=== PATIENT | male | born 1940 | race Caucasian/White ===

== ENCOUNTER 2017-12-01 10:34 | Emergency (ER) | payer MEDICARE, BC ==
[~2017-12-01] VITALS: Ht 182.9 cm; Wt 113.4 kg
[~2017-12-01 10:34] MED LIST: ALBU3IS INH; ALBU4 PO; ALBU90OI INH; ALBU90OI6 INH; ASPI325 PO; ASPI81CH PO; ATOR40TA PO; BENAML20/5 PO; BENZ100A PO; Benazepril HCl10 MG PO; CALCNI; CLOB.05TO; CLOP75 PO; DOCU100 PO; DULERA 200 MCG/13 GM INH; GUAI600T33 PO; HYDACE5 PO; HYDCHL25 PO; HYDR1TAB94 PO; Hair, Skin & N1 EACH PO; LAVAP17G; LAVAP17G PO; LEVFLO500 PO; LEVO750 PO; MECL12.5 PO; METO50ER; METO50ER PO; MULVITMIND; NAPR500ERA PO; NEBI10 PO; OMEPRAZOLE MAGN20 MG PO; POTCHL10ER PO; PRED1 PO; PRED10 PO; TIOT18 INH; TORS10
[2017-12-01 11:44] LABS: BASOPHILS ABSOLUTE AUTO 0.06 K/mm3 (0.00-0.23); BASOPHILS PERCENT AUTO 1 % (0-2); EOSINOPHILS ABSOLUTE AUTO 0.25 K/mm3 (0.00-0.68); EOSINOPHILS PERCENT AUTO 4 % (0-6); Hematocrit 38.2 % (37.0-53.0); Hemoglobin 12.7 g/dL (13.5-17.5); IMMATURE GRAN ABSOLUTE AUTO 0.01 K/mm3 (0.00-0.10); IMMATURE GRAN PERCENT AUTO 0 % (0-1); LYMPHOCYTES PERCENT AUTO 19 % (21-46); MONOCYTES ABSOLUTE AUTO 0.33 K/mm3 (0.16-1.47); MONOCYTES PERCENT AUTO 6 % (4-13); Mean Corpuscular HGB 28.5 pg (26.0-34.0); Mean Corpuscular HGB Conc 33.2 g/dL (31.5-36.5); Mean Corpuscular Volume 86 fL (80-100); Mean Platelet Volume 9.1 fL (9.1-12.4); NEUTROPHILS ABSOLUTE AUTO 3.93 K/mm3 (1.96-9.15); NEUTROPHILS PERCENT AUTO 69 % (41-73); Platelet Count 199 K/mm3 (150-400); RDW Coefficient Variation 13.5 % (11.7-14.2); RDW Standard Deviation 42.2 fL (35.1-46.3); Red Blood Cell Count 4.45 M/mm3 (4.30-5.90); White Blood Cell Count 5.68 K/mm3 (4.00-11.30)
[2017-12-01 11:53] LABS: Alanine Aminotransfer (ALT/SGP 21 U/L (12-78); Albumin, Blood 3.7 g/dL (3.4-5.0); Albumin/Globulin Ratio 1.1 (0.8-1.8); Alk Phos 113 U/L (50-136); Anion Gap 5 mmol/L (6-16); Aspartate Aminotrans (AST/SGOT 16 U/L (12-37); Bilirubin, Total 1.5 mg/dL (0.1-1.0); Blood Urea Nitrogen 19 mg/dL (8-24); Bun/Creatinine Ratio 15.3 (12.0-20.0); CO2, Blood 29 mmol/L (21-32); Calcium, Blood 8.6 mg/dL (8.5-10.1); Chloride, Blood 105 mmol/L (98-108); Creatinine, Blood 1.24 mg/dL (0.60-1.20); Globulin, Blood 3.4 g/dL (2.2-4.0); Glomerular Filtration Rate 60 (60-); Glucose, Blood 127 mg/dL (70-99); Potassium, Blood 3.9 mmol/L (3.5-5.5); Sodium, Blood 139 mmol/L (136-145); Total Protein, Blood 7.1 g/dL (6.4-8.2); Troponin I <0.015 ng/mL (0.000-0.040)
[2017-12-01 13:02] LABS: Source, Urine Clean Catch
[2017-12-01 13:04] LABS: Appearance, Urine Clear (Clear); Bilirubin, Urine Neg (Neg); Blood, Urine Neg (Neg); Color, Urine Yellow (P-Yellow); Glucose Qualitative, Urine Neg (Neg); Ketones, Urine Neg (Neg); Leukocyte Esterase, Urine 1+ (Neg); Nitrite, Urine Neg (Neg); Protein, Urine Neg (Neg); Specific Gravity, Urine 1.005 (1.003-1.022); Urobilinogen, Urine NORM (Normal)
[2017-12-01 13:23] LABS: Bacteria Rare /hpf; Red Blood Cells, Urine 0-2 /hpf (0-2); Squamous Epithelial Cells Rare /hpf (Few); White Blood Cells, Urine 0-2 /hpf (0-5)
[2017-12-01] MEDS ORDERED: BENZ100A PO (14:27)
[2017-12-01] MEDS ORDERED: Cyclobenzaprine5 MG PO (14:27)
[2017-12-01] MEDS ORDERED: Norco 5-325 Ta1 EACH PO (14:27)
== END 2017-12-01 14:47 | disposition home or self-care (01) ==
LOC: ER 10:34
PROVIDERS: Emergency Medicine
DX: J40 Bronchitis, not specified as acute or chronic (principal); Z88.0 Allergy status to penicillin; Z88.8 Allergy status to other drugs, medicaments and biological substances; Z91.048 Other nonmedicinal substance allergy status; Z79.82 Long term (current) use of aspirin; Z79.899 Other long term (current) drug therapy; I10 Essential (primary) hypertension; Z85.46 Personal history of malignant neoplasm of prostate
CPT/HCPCS: 36415; 71046; 80053; 81001; 83880; 84484; 85025; 87077; 87086; 87186; 93005; 93010; 94640; 96374; 99284; J1200

== ENCOUNTER 2018-02-01 14:12 | Emergency (ER) | payer MEDICARE, BC ==
[~2018-02-01] VITALS: Ht 182.9 cm; Wt 108.9 kg
[~2018-02-01 14:12] MED LIST changes: +Cyclobenzaprine5 MG PO; +Norco 5-325 Ta1 EACH PO
[2018-02-01 14:48] LABS: BASOPHILS ABSOLUTE AUTO 0.06 K/mm3 (0.00-0.23); BASOPHILS PERCENT AUTO 1 % (0-2); EOSINOPHILS ABSOLUTE AUTO 0.01 K/mm3 (0.00-0.68); EOSINOPHILS PERCENT AUTO 0 % (0-6); Hematocrit 24.2 % (37.0-53.0); Hemoglobin 8.2 g/dL (13.5-17.5); IMMATURE GRAN ABSOLUTE AUTO 0.02 K/mm3 (0.00-0.10); IMMATURE GRAN PERCENT AUTO 0 % (0-1); LYMPHOCYTES PERCENT AUTO 9 % (21-46); MONOCYTES PERCENT AUTO 7 % (4-13); Mean Corpuscular HGB Conc 33.9 g/dL (31.5-36.5); Mean Corpuscular Volume 89 fL (80-100); NEUTROPHILS ABSOLUTE AUTO 8.33 K/mm3 (1.96-9.15); NEUTROPHILS PERCENT AUTO 83 % (41-73); Platelet Count 282 K/mm3 (150-400); RDW Coefficient Variation 14.1 % (11.7-14.2); RDW Standard Deviation 43.8 fL (35.1-46.3); Red Blood Cell Count 2.73 M/mm3 (4.30-5.90); White Blood Cell Count 10.02 K/mm3 (4.00-11.30)
[2018-02-01 14:50] LABS: Calcium, Ionized (POC) 1.13 mmol/L (1.10-1.46); Chloride (POC) 101 mmol/L (98-108); Creatinine (POC) 1.7 mg/dL (0.8-1.3); Glucose (ISTAT POC) 128 mg/dL (70-99); Hemoglobin (POC) 7.1 g/dL (13.5-17.5); Potassium (POC) 3.1 mmol/L (3.5-5.5); Sodium (POC) 139 mmol/L (135-148); Total CO2 (POC) 27 mmol/L (21-32)
[2018-02-01] MEDS ORDERED: ANORO ELLIPTA1 EACH INH (14:53)
[2018-02-01] MEDS ORDERED: ALBU2.5V5 NEB (14:53)
[2018-02-01] MEDS ORDERED: BUDE.5 NEB (14:54)
[2018-02-01 15:11] LABS: Albumin, Blood 3.5 g/dL (3.4-5.0); Albumin/Globulin Ratio 1.2 (0.8-1.8); Bilirubin, Total 1.3 mg/dL (0.1-1.0); Bun/Creatinine Ratio 43.1 (12.0-20.0); Calcium, Blood 8.9 mg/dL (8.5-10.1); Creatinine, Blood 1.53 mg/dL (0.60-1.20); Potassium, Blood 3.3 mmol/L (3.5-5.5); Total Protein, Blood 6.5 g/dL (6.4-8.2)
== END 2018-02-01 21:59 | disposition short-term general hospital (02) ==
LOC: ER 14:12
PROVIDERS: Emergency Medicine
DX: K92.2 Gastrointestinal hemorrhage, unspecified (principal); D64.9 Anemia, unspecified; I10 Essential (primary) hypertension; Z87.01 Personal history of pneumonia (recurrent); Z87.891 Personal history of nicotine dependence; Z88.0 Allergy status to penicillin; Z85.46 Personal history of malignant neoplasm of prostate; Z88.8 Allergy status to other drugs, medicaments and biological substances; Z91.048 Other nonmedicinal substance allergy status; Z79.899 Other long term (current) drug therapy; Z79.82 Long term (current) use of aspirin
CPT/HCPCS: 36415; 36430; 74176; 80047; 80053; 83690; 85014; 85025; 86850; 86900; 86901; 86923; 93005; 93010; 96365; 96366; 99285; C9113; J7030; P9016

== ENCOUNTER 2018-12-16 00:04 | Inpatient (IN) | payer MEDICARE, BC ==
[~2018-12-16] VITALS: Ht 177.8 cm; Wt 104.2 kg
[~2018-12-16 00:04] MED LIST changes: +ALBU2.5V5 NEB; +ANORO ELLIPTA1 EACH INH; +BUDE.25 NEB
[2018-12-16 00:19] LABS: PCO2 Arterial 47.6 mmHg (35-45); pH Blood Arterial 7.34 (7.35-7.45)
[2018-12-16 00:22] LABS: PO2 Arterial < 500 mmHg (80-100)
[2018-12-16 00:27] LABS: BASOPHILS ABSOLUTE AUTO 0.07 K/mm3 (0.00-0.23); BASOPHILS PERCENT AUTO 1 % (0-2); EOSINOPHILS ABSOLUTE AUTO 0.86 K/mm3 (0.00-0.68); EOSINOPHILS PERCENT AUTO 12 % (0-6); Hematocrit 42.4 % (37.0-53.0); Hemoglobin 13.8 g/dL (13.5-17.5); IMMATURE GRAN ABSOLUTE AUTO 0.02 K/mm3 (0.00-0.10); IMMATURE GRAN PERCENT AUTO 0 % (0-1); LYMPHOCYTES PERCENT AUTO 21 % (21-46); MONOCYTES PERCENT AUTO 9 % (4-13); Mean Corpuscular HGB 29.7 pg (26.0-34.0); Mean Corpuscular HGB Conc 32.5 g/dL (31.5-36.5); Mean Corpuscular Volume 91 fL (80-100); Mean Platelet Volume 9.4 fL (9.1-12.4); NEUTROPHILS ABSOLUTE AUTO 3.95 K/mm3 (1.96-9.15); NEUTROPHILS PERCENT AUTO 56 % (41-73); Platelet Count 189 K/mm3 (150-400); RDW Coefficient Variation 13.2 % (11.7-14.2); RDW Standard Deviation 44.5 fL (35.1-46.3); Red Blood Cell Count 4.64 M/mm3 (4.30-5.90)
[2018-12-16] MEDS ORDERED: ALBU90OI6 INH (00:30)
[2018-12-16] MEDS ORDERED: PANT40 PO (00:31)
[2018-12-16 00:51] LABS: Influenza A Negative (NEGATIVE); Influenza B Negative (NEGATIVE)
[2018-12-16 01:02] LABS: Alanine Aminotransfer (ALT/SGP 17 U/L (12-78); Albumin, Blood 3.9 g/dL (3.4-5.0); Albumin/Globulin Ratio 1.2 (0.8-1.8); Alk Phos 100 U/L (50-136); Anion Gap 5 mmol/L (6-16); Aspartate Aminotrans (AST/SGOT 16 U/L (12-37); Blood Urea Nitrogen 19 mg/dL (8-24); Bun/Creatinine Ratio 13.6 (12.0-20.0); CO2, Blood 29 mmol/L (21-32); Calcium, Blood 8.7 mg/dL (8.5-10.1); Chloride, Blood 108 mmol/L (98-108); Globulin, Blood 3.2 g/dL (2.2-4.0); Glomerular Filtration Rate 52 (60-); Glucose, Blood 118 mg/dL (70-99); Magnesium, Blood 2.1 mg/dL (1.6-2.4); Potassium, Blood 4.2 mmol/L (3.5-5.5); Sodium, Blood 142 mmol/L (136-145); Total Protein, Blood 7.1 g/dL (6.4-8.2); Troponin I <0.015 ng/mL (0.000-0.040)
[2018-12-16] MEDS ORDERED: METO50ER PO (04:24)
[2018-12-16] MEDS ORDERED: ASCO500 PO (04:26)
--- NOTE | 2018-12-16 05:38 | NUR ---
ADMIT: PT TO ROOM ICU 12 VIA SAM FROM THE ER AT 0357. PT A+O, VSS, PT OFF BIPAP ONCE IN ROOM WITH SATS 92%. PT TALKING FULL SENTENCES. LS COARSE WITH EXP WHEEZE T/O. RT WAS AT BEDSIDE AND PLACED PT ON BIPAP WHICH PT TOLERATES WELL. PT WITH NO COMPLAINTS. CALL LIGHT WITHIN REACH.
--- NOTE | 2018-12-16 05:41 | NUR ---
DR. WOODSON: CALL TO DR. WOODSON FOR ADMISSION ORDERS FOR PT. GAVE PHONE ORDERS FOR CPAP/BIPAP PROTOCOL AND REGULAR DIET. DR. WOODSON STATED WILL BE PLACING ORDER AROUND SIX O'CLOCK THIS AM.
--- NOTE | 2018-12-16 07:25 | NUR ---
REX HOSE PLACED. PT TOLERATED WELL.
--- NOTE | 2018-12-16 12:00 | NUR ---
ASSUMED CARE OF THIS PT FROM NAIDA DOWNS. INTRODUCED SELF TO PT AND ASKED IF THERE ARE ANY NEEDS.
--- NOTE | 2018-12-16 18:14 | NUR ---
SHIFT SUMMARY: PT IS ALERT AND ORIENTED X3. PT IS SITTING UP IN A CHAIR EATING DINNER. PT CONTINUES TO BECOME EASILY DYPSNEIC WITH MINIMAL EXERTION OR CONTINUOUS CONVERSATIONS, HOWEVER, 02 SATS MAINTAIN DURING THESE TIMES. PT DOES HAVE INS/EXP WHEEZES/TIGHTNESS BILATERALLY. 02 SATS >90% ON 2L 02 VIA N/C OR BIPAP WITH REST/NAPS/SLEEP.
--- NOTE | 2018-12-16 19:20 | NUR ---
REPORTED OFF TO NAIDA RAMIREZ WHOM IS ASSUMING CARE OF PT.
--- NOTE | 2018-12-17 07:08 | NUR ---
REPORT GIVEN TO YOLA PASCAL TO ASSUME CARE OF PT AT THIS TIME.
--- NOTE | 2018-12-17 07:29 | NUR ---
AM ASSESSMENT: PT IS ALERT AND ORIENTED X3. DENIES PAIN, MOVES SELF IN BED. REMINDED PT TO CALL FOR HELP WITH TNX'S. LUNGS ARE CLEAR BUT DIMINISHED IN THE BILATERAL BASES. SATS 96% ON 1.5L PER N/C. DECREASED TO 1L PER N/C. PT DOES CONTINUE TO BECOME MILDLY DYSPNEA WITH MINIMAL EXERTION. PACER TO LT CW. SR-70'S RANGE. 1+ ANKLE/PEDAL EDEMA. PT VOIDS PER URINAL. DOES HAVE SOME URINE INCONTINENCE AND WEARS DEPENDS.
--- NOTE | 2018-12-17 16:17 | NUR ---
SHIFT SUMMARY: PT OOB TO CHAIR FOR MOST OF THE SHIFT. SBA WITH TNX'S FOR SAFETY FOR LINES. CONTINUES TO DENY ANY PAIN T/O SHIFT. PT MOSTLY INDEPENDENT IN ROOM. LUNGS REMAIN CLEAR BUT DIMINISHED T/O BILATERALLY. HRR, SR-80'S RANGE. PACER IN PLACE TO LT CHEST WALL. PT W/ CONTINUED/CHRONIC URINE INCONTINENCE. PT ABLE TO USE URINAL. -PCU STATUS, WILL TNX WHEN A BED IS AVAILABLE. -FULL CODE STATUS
--- NOTE | 2018-12-17 20:23 | NUR ---
CALL TO HOSPITALIST: VERIFIED ALLERGY TO METALS WITH PT. PT STATED ALLERGY TO METALS HAVE BEEN ALL SKIN RELATED. PT STATED HAS NEVER HAD A REACTION TO TAKING VITAMINS ETC. DR. MILES NOTIFIED REGARDIGN PT LOSING TWO IV'S TODAY AND HAS NO IV ACCESS. THEREFORE, IV SOLU-MEDROL DC'D AND PREDNISONE 60mg DAILY ORDERED. DR. MILES STATED TO SKIP TONIGHTS DOSE OF SOLU/PRED AND TO BEGIN ORAL IN THE AM.
[2018-12-18 04:53] LABS: Bun/Creatinine Ratio 24.1 (12.0-20.0); Creatinine, Blood 1.58 mg/dL (0.60-1.20); Potassium, Blood 3.8 mmol/L (3.5-5.5)
--- NOTE | 2018-12-18 11:35 | NUR ---
0715-ASSUMED CARE OF PT. PT IS ALERT AND ORIENTED. DENIES PAIN AT THIS TIME. 0800-PT CAME BACK FROM RADIOLOGY FOR 2 VIEW CXR. 1135-PT HAS BEEN SITTING ON THE CHAIR SINCE COMING BACK FROM XRAY. PT AMBULATES IN THE ROOM USING A WALKER.
--- NOTE | 2018-12-18 16:03 | NUR ---
DR. HERNÁNDEZ AT BEDSIDE, CHECKING PATIENT.
--- NOTE | 2018-12-18 17:26 | NUR ---
SHIFT SUMMARY: PT IS ALERT AND ORIENTED. GETS UP IN THE ROOM USING A WALKER WITH 1 STANDBY ASSIST. PT HAS COMPLAINED OF CHEST TIGHTNESS WHICH HE MENTIONED THIS TO DR. HERNÁNDEZ STATED BY PATIENT. PT GETS SHORT OF BREAD WITH ACTIVITY. PT HAS USED HIS HOME CPAP THIS AFTERNOON WHILE TAKING A NAP.
--- NOTE | 2018-12-18 19:20 | NUR ---
ASSESSMENT PT SLEEPING SITTING UP IN BED WITH HOME CPAP ON. AWAKENS EASILY TO VERBAL. DENIES PAIN OR DISCOMFORT. LUNGS CLEAR BUT DECREASED ON HOME CPAP WITHOUT O2. RESP EVEN AND NONLABORED. DENIES SOB OR COUGH AT THIS TIME. PT STATES,"AT HOME I USE MY NEB THAN PUT MY CPAP ON AND GO TO SLEEP. AFTER AWHILE I WAKE UP AND NEED TO USE NEBS AGAIN BUT THE SOB CONT. THAN I END UP BACK IN HERE BECAUSE OF SOB". EXPLAINED THAT WE WANTED TO MONITOR WHAT HE IS DOING ON HIS HOME SETTINGS TONIGHT TO SEE IF WE NEEDED TO CHANGE SOME THINGS FOR HIM. HEART RATE PACED, BP STABLE. NO IV. BT+ ABD SOFT AND NONTENDER. REMINDED PT TO CALL US BEFORE GETTING UP, SO THAT WE CAN EVAL HOW HE IS DOING AND BE THERE TO PREVENT FALLS. PT EXPRESSED UNDERSTANDING
--- NOTE | 2018-12-19 | NUR ---
PT UP PT AWAKE UP TO BATHROOM WITH STANDBY ASSIST AND WALKER. INCONT URINE. HAD BOWEL MOVEMENT, BACK TO BED AND CPAP APPLIED.
--- NOTE | 2018-12-19 07:27 | NUR ---
ASSUMED CARE: PT SITTING UPRIGHT IN BED AT THIS TIME ON RA. DR HERNÁNDEZ WAS IN ROOM AT 0650 AND NOTED TACHYCARDIA WHILE PT WAS JUST SITTING IN BED. CARDIOLOGY CONSULT ORDERED AND CALLED IN. HR IN 120S AT THIS TIME. NO FURTHER NEEDS OR CONCERNS NOTED.
--- NOTE | 2018-12-19 09:16 | NUR ---
PT WAS SITTING AT SIDE OF BED EATING BREAKFAST. HR STARTED TO TOUCH INTO 190S, AM MEDS ALREADY GIVEN. PT STATES HE FEELS PALPITATIONS AND THAT HE IS SOB BUT NO CP. CALL TO DR HERNÁNDEZ, ORDER FOR EKG. EKG COMPLETED. CALL TO DR DENG. NO NEW ORDERS AT THIS TIME, SHE STATES SHE WILL BE BY TO SEE PT SHORTLY.
--- NOTE | 2018-12-19 09:17 | NUR ---
PT BACK TO BED AT THIS TIME, HR IN 140S.
[2018-12-19 10:07] LABS: Hematocrit 41.5 % (37.0-53.0); Hemoglobin 13.5 g/dL (13.5-17.5); Mean Corpuscular HGB 28.9 pg (26.0-34.0); Mean Corpuscular HGB Conc 32.5 g/dL (31.5-36.5); Mean Corpuscular Volume 89 fL (80-100); Mean Platelet Volume 9.6 fL (9.1-12.4); Platelet Count 200 K/mm3 (150-400); RDW Coefficient Variation 13.5 % (11.7-14.2); RDW Standard Deviation 43.7 fL (35.1-46.3); Red Blood Cell Count 4.67 M/mm3 (4.30-5.90); White Blood Cell Count 9.57 K/mm3 (4.00-11.30)
[2018-12-19 10:33] LABS: Bun/Creatinine Ratio 29.9 (12.0-20.0); Calcium, Blood 8.5 mg/dL (8.5-10.1); Creatinine, Blood 1.47 mg/dL (0.60-1.20); Magnesium, Blood 1.8 mg/dL (1.6-2.4); Potassium, Blood 3.9 mmol/L (3.5-5.5)
[2018-12-19 10:35] LABS: Thyroid Stimulating Hormone 0.274 uIU/mL (0.360-4.800)
--- NOTE | 2018-12-19 10:37 | NUR ---
DR DENG HERE WITH PT. HR WENT INTO 140S WITH AT BEDSIDE. 6MG ADENOSINE GIVEN, AFFECTIVE FOR ONLY A FEW MINUTES. 12MG ADENOSINE GIVEN. AFFECTIVE FOR A FEW MINUTES LONGER. PT'S HR IS 120S-130S AT THIS TIME. DR DENG AWARE. DR HERNÁNDEZ CALLED DURING EVENT AND WAS TOLD RN WOULD CALL BACK. ATTEMPTED TO RETURN CALL. DR DENG SPOKE WITH DR HERNÁNDEZ AND IS CALLING PT'S DAUGHTER NOW.
[2018-12-19 10:47] LABS: BASOPHILS PERCENT MAN 0 % (0-2); EOSINOPHILS PERCENT MAN 0 % (0-6); LYMPHOCYTES ABSOLUTE MAN 0.76 K/mm3 (0.84-5.20); LYMPHOCYTES PERCENT MAN 8 % (21-46); MONOCYTES ABSOLUTE MAN 0.38 K/mm3 (0.16-1.47); MONOCYTES PERCENT MAN 4 % (4-13); NEUTROPHILS ABSOLUTE MAN 8.42 K/mm3 (1.96-9.15); SEG NEUTROPHILS PERCENT MAN 88 % (41-73); TOTAL CELLS COUNTED 100
--- NOTE | 2018-12-19 10:47 | NUR ---
GOT IN TOUCH WITH DR HERNÁNDEZ. NO NEW ORDERS AT THIS TIME
--- NOTE | 2018-12-19 11:16 | NUR ---
DR DENG ATTEMPTED TO CALL PT'S DAUGHTER FOR UPDATE. UNABLE TO CONNECT. SHE CALLED BACK. PT'S DAUGHTER WAS GIVEN UPDATE BY THIS RN. PT AWARE. STERILE PROCESSING TECHNICIAN IN ROOM AT THIS TIME.
--- NOTE | 2018-12-19 12:01 | NUR ---
Echocardiogram completed.
--- NOTE | 2018-12-19 13:18 | NUR ---
PT'S HR INCREASED INTO 130S WITH MINIMAL ACTIVITY, CHANGING ATTENDS. SPOKE WITH DR HERNÁNDEZ, DEFERRED TO CARDIOLOGY. SPOKE WITH DR DENG WHO STATES THAT LONG PT IS ASYMPTOMATIC THEN TO KEEP WATCHING AND LET PO MED TAKE AFFECT. PT STATES SOB BUT ALSO STATES HE HAS BEEN SOB WITH OR WITHOUT EVENTS. NO CP. NO NEW ORDERS AT THIS TIME.
--- NOTE | 2018-12-19 13:25 | NUR ---
Pt. hospitalized since 12/15/18 with Shortness of breath. He is followed by Dr. Seymour in [place]. Adequate battery status. Normal atrial and ventricular sensing. Unable to do capture threshold due to fast heart rate (122 bpm). Lead impedances stable at 425 ohms in the atrium and 575 ohms in the ventricle. P wave 5.0mV. R wave 12.0mV. Histograms show Ap 51% Restaurant Managing Partner 2%. Number os mode switches: 45. Ventricular high rate episodes: 2. Information given to Dr. Dumont.
--- NOTE | 2018-12-19 18:03 | NUR ---
SHIFT SUMMARY: PT HAS HAD NO FURTHER EPISODES OF SVT, HR IN 60S TO 70S WITH BPS STABLE. PT ON 1-2L O2 FOR SOB SATTING IN MID 90S. DENIES CHEST PAIN OR OTHER CONCERNS. RESTING QUIETLY IN BED EATING DINNER AT THIS TIME.
--- NOTE | 2018-12-19 19:35 | NUR ---
ASSUMED PT CARE AT 1915 PT SLEEPING IN BED. HR 60; ATRIAL PACED. PT APPEARS COMFORTABLE AT THIS TIME; CALL LIGHT IN REACH. DOES NOT APPEAR TO BE IN ANY DISTRESS AT THIS TIME.
--- NOTE | 2018-12-20 05:35 | NUR ---
END OF SHIFT SUMMARY PT COMPLIANT WITH CPAP ALL NIGHT; OXYGEN SATURATION MAINTAINED GREATER THAN 90%. NO COMPLAINTS OF SOB OR CHEST PAIN. PT STATED HIS CHEST FEELS "TIGHT" ONLY WHEN HE COUGHS. NO RUNS OF SVT THIS SHIFT WILL HR MAINTAINING 60-80'S AT REST AND A COUPLE ELEVATED 90'S WHEN PT IS MOVING AROUND. PT DECLINED THE NEED TO BE WOKEN UP EVERY TWO HOURS FOR REPOSIITONING AND STATED HE COULD DO IT HIMSELF. PT DOES NOT APPEAR TO BE IN ANY DISTRESS AT THIS TIME.
--- NOTE | 2018-12-20 15:30 | NUR ---
Assumed care from Colt PASCAL. Patient recieving bath currently. He is up out of bed with assist. He is alert and oriented and is able to commuicate his needs. Patient will transfer to chair and stay up awhile. He is on RA and sats 94% and denies any SOB at rest.
--- NOTE | 2018-12-20 17:30 | NUR ---
patient remains up in chair and sats mid 90% on RA. He tolerated dinner well. He has been a good mood and states he is almost feeling better. 20ga IV LH flushed and capped. He stated he wanted to stay in chair until bedtime.
--- NOTE | 2018-12-20 17:51 | NUR ---
ABDOUL Roberts RN ASSUSMED CARE OF PT AND STATED HE REVEIWED CHART.
--- NOTE | 2018-12-20 19:45 | NUR ---
ASSUMED PT CARE AT 1915 PT UP IN ROOM; INDEPENDENT. PT NOTED TO BE VERY SOB WITH EXERTION. MADE HIS WAY OVER TO THE BED TO SIT ON THE EDGE TO CATCH HIS BREATH. PT DISCONNECTED FROM THE MONITOR UPON ARRIVAL TO ROOM; HOOKED BACK UP TO MONITOR WITH RHYTHM ATRIAL PACED WITH HR AT 60. OXYGEN SATURATIONS MAINTAINING AT 95% ON RA; PT SITTING ON EDGE OF BED PURSED LIP BREATHING, WELL USING ACCESSORY MUSCLES. CALLED RT FOR BREATHING TX D/T PT'S LUNG SOUNDS NOTED TO HAVE WHEEZING T/O. PT IS RESTING IN BED WITH CALL LIGHT IN REACH AT THE MOMENT.
--- NOTE | 2018-12-21 05:47 | NUR ---
END OF SHIFT SUMMARY PT HAS BEEN PLEASANT AND COOPERATIVE WITH CARE T/O ENTIRE NIGHT. COMPLIANT WITH CPAP USE; OXYGEN SATURATIONS MAINTINING GREATER THAN 91%. PT MAINLY ATRIAL PACED T/O NIGHT WITH HR IN THE 60'S; HOWEVER, HAD A FEW NON-SUSTAINED RHYTHM CHANGES TO BUNDLE BRANCH BLOCKS WITH HR IN THE 70'S; THEN BACK TO ATRIAL PACED; ASYMPTOMATIC. PT ABLE TO UTILIZE CALL LIGHT APPROPRIATELY; PT ONLY EXPERIENCED THE ONE EPISODE OF SOB. DOES NOT APPEAR TO BE IN ANY DISTRESS AT THIS TIME; SITTING UP IN BED AND ABLE TO MAKE NEEDS KNOWN.
--- NOTE | 2018-12-21 06:30 | NUR ---
DR. HERNÁNDEZ AT BEDSIDE DR. HERNÁNDEZ STATED PT MAY GO MED FLOOR WITH TELEMETRY TODAY.
--- NOTE | 2018-12-21 08:00 | NUR ---
Recieived report from Noc RN. Patient sitting up in bed watching TV. He denies any pain or SOB unless exertion. He remains on RA and sats low to mid 90%'s. He is independent in room and positions self with comfort. He has 20ga IV dressing intact and site WNL's and has been flushed and SL.
--- NOTE | 2018-12-21 09:30 | NUR ---
Patient tolerated PO meds and breakfast and denies any nausea. He remains Atrial Paced in the 90's, mid 90%'s on RA. No other significant changes
--- NOTE | 2018-12-21 11:30 | NUR ---
Patient has been up to shower and now remains up in chair. He has had vsitors and tolerates care well. VSS no new changes
--- NOTE | 2018-12-21 13:57 | NUR ---
Gave report to family law specialist and patient will be going to [facility] and patient has been told of transfer and deneis any concerns .
--- NOTE | 2018-12-21 14:26 | NUR ---
Patient transfered vioa wheelchair to [facility] and all personal belonging went, patient and I look throughout room to assure nothing left behind. He was transfered on RA and handed off patient directly to RN.
--- NOTE | 2018-12-21 18:42 | NUR ---
SHIFT SUMMARY PT IS A SBA TO THE BATHROOM. PT BECOMES SOB WITH ACTIVITY. PT IS INCONTINENT AND WEARS PULL UPS. VSS. WILL CONTINUE TO MONITOR UNTIL REPORT TO ONCOMING RN.
--- NOTE | 2018-12-22 07:37 | NUR ---
SHIFT SUMMARY PT REMAINS ON FLOOR FOR LLL PNEUMONIA AND COPD EXACERBATION. HE IS MAINTAINING SATS ON RA, WORE HIS CPAP AT HS FOR DAMIR. TELE WAS PACED AT 60 BPM. HE HAS CONSTANT LEAKING URINE R/T PROSTATE CANCER TREATMENT, ATTENDS IN PLACE. PT IS A&O, MAKES NEEDS KNOWN. SBA W/ FWW FOR AMBULATION. STARTED BOWEL CARE THIS MORNING, PT REPORTS NO BM FOR A FEW DAYS. REPORT PASSED TO ONCOMING SHIFT.
[2018-12-22] MEDS ORDERED: ACET325 PO (14:29)
[2018-12-22] MEDS ORDERED: AZIT250 PO (14:30)
[2018-12-22] MEDS ORDERED: DILT120 PO (14:31)
[2018-12-22] MEDS ORDERED: LEVFLO500 PO (14:33)
[2018-12-22] MEDS ORDERED: PRED10 PO (14:35)
--- NOTE | 2018-12-22 15:15 | NUR ---
DISCHARGE PT EDUCATED ON AND RECEIVED PRINTED DISCHARGE INSTRUCTIONS. PT EDUCATED ON ALL NEW MEDICATIONS AND INSTRUCTIONS ON HOW TO TAKE THEM. MEDICATIONS FAXED OVER TO [facility]. PT VERBALIZED AN UNDERSTANDING OF ALL INSTRUCTIONS. IV DC'D. HOME HEALTH REFERRAL SENT OVER TO [facility] PER SOLE ROUNDER ABEL. PT INFORMED OF THIS. PT GATHERING ALL PERSONAL BELONGINGS AND GETTING DRESSED. TO PICK PT UP LATER THIS EVENING.
== END 2018-12-22 16:47 | disposition home or self-care (01) | DRG 193 ==
LOC: ER 00:04 → ICUW 01:28 → ERHOLD 01:28 → ICUW 03:57 → SURS 12-21 14:30
PROVIDERS: Emergency Medicine; Internal Medicine Cardiovascular Disease; ADMIT Hospitalist
PROC: 5A09457 Assistance with Respiratory Ventilation, 24-96 Consecutive Hours, Continuous Positive Airway Pressure (ICD-10-PCS; principal; 2018-12-16)
DX: J18.9 Pneumonia, unspecified organism (principal); J96.01 Acute respiratory failure with hypoxia; J44.0 Chronic obstructive pulmonary disease with (acute) lower respiratory infection; E78.5 Hyperlipidemia, unspecified; I12.9 Hypertensive chronic kidney disease with stage 1 through stage 4 chronic kidney disease, or unspecified chronic kidney disease; N18.3 Chronic kidney disease, stage 3 (moderate); G47.33 Obstructive sleep apnea (adult) (pediatric); H35.30 Unspecified macular degeneration; Z87.891 Personal history of nicotine dependence; I25.10 Atherosclerotic heart disease of native coronary artery without angina pectoris; Z95.5 Presence of coronary angioplasty implant and graft; I71.2 Thoracic aortic aneurysm, without rupture; I51.89 Other ill-defined heart diseases; Z95.0 Presence of cardiac pacemaker; E66.9 Obesity, unspecified; Z68.31 Body mass index [BMI] 31.0-31.9, adult
CPT/HCPCS: 36415; 36600; 71045; 71046; 80048; 80053; 82803; 82947; 83735; 83880; 84439; 84443; 84484; 85025; 87804; 93005; 93010; 93280; 93306; 94640; 94660; 94762; 96374; 99285-25; J0153; J1650; J2930

== ENCOUNTER 2019-01-09 13:11 | Emergency (ER) | payer MEDICARE, BC ==
[~2019-01-09] VITALS: Ht 182.9 cm; Wt 104.3 kg
[~2019-01-09 13:11] MED LIST changes: +ACET325 PO; +ASCO500 PO; +AZIT250 PO; +DILT120 PO; +PANT40 PO
[2019-01-09 13:42] LABS: BASOPHILS PERCENT AUTO 0 % (0-2); EOSINOPHILS ABSOLUTE AUTO 0.06 K/mm3 (0.00-0.68); EOSINOPHILS PERCENT AUTO 1 % (0-6); Hemoglobin 13.9 g/dL (13.5-17.5); IMMATURE GRAN ABSOLUTE AUTO 0.02 K/mm3 (0.00-0.10); IMMATURE GRAN PERCENT AUTO 0 % (0-1); LYMPHOCYTES PERCENT AUTO 6 % (21-46); MONOCYTES ABSOLUTE AUTO 0.36 K/mm3 (0.16-1.47); MONOCYTES PERCENT AUTO 7 % (4-13); Mean Corpuscular HGB 29.9 pg (26.0-34.0); Mean Corpuscular HGB Conc 33.1 g/dL (31.5-36.5); Mean Corpuscular Volume 90 fL (80-100); Mean Platelet Volume 8.6 fL (9.1-12.4); NEUTROPHILS ABSOLUTE AUTO 4.42 K/mm3 (1.96-9.15); NEUTROPHILS PERCENT AUTO 86 % (41-73); Platelet Count 84 K/mm3 (150-400); RDW Coefficient Variation 14.5 % (11.7-14.2); RDW Standard Deviation 47.9 fL (35.1-46.3); Red Blood Cell Count 4.65 M/mm3 (4.30-5.90); White Blood Cell Count 5.16 K/mm3 (4.00-11.30)
[2019-01-09 13:47] LABS: PCO2 Arterial 28.7 mmHg (35-45); PO2 Arterial 56.7 mmHg (80-100); pH Blood Arterial 7.54 (7.35-7.45)
[2019-01-09 13:54] LABS: International Normalized Ratio 1.04
[2019-01-09 14:06] LABS: Troponin I <0.015 ng/mL (0.000-0.040)
[2019-01-09 14:18] LABS: Alanine Aminotransfer (ALT/SGP 44 U/L (12-78); Albumin, Blood 3.4 g/dL (3.4-5.0); Albumin/Globulin Ratio 1.2 (0.8-1.8); Alk Phos 66 U/L (50-136); Anion Gap 8 mmol/L (6-16); Aspartate Aminotrans (AST/SGOT 24 U/L (12-37); Blood Urea Nitrogen 19 mg/dL (8-24); Bun/Creatinine Ratio 15.2 (12.0-20.0); CO2, Blood 27 mmol/L (21-32); Calcium, Blood 8.2 mg/dL (8.5-10.1); Chloride, Blood 104 mmol/L (98-108); Creatinine, Blood 1.25 mg/dL (0.60-1.20); Globulin, Blood 2.8 g/dL (2.2-4.0); Glomerular Filtration Rate 59 (60-); Glucose, Blood 92 mg/dL (70-99); Potassium, Blood 3.8 mmol/L (3.5-5.5); Sodium, Blood 139 mmol/L (136-145); Total Protein, Blood 6.2 g/dL (6.4-8.2)
[2019-01-09 15:15] LABS: Source, Urine Catheter
[2019-01-09 15:20] LABS: Appearance, Urine Clear (Clear); Bilirubin, Urine Neg (Neg); Blood, Urine 3+ (Neg); Color, Urine Yellow (P-Yellow); Glucose Qualitative, Urine Neg (Neg); Ketones, Urine 3+ (Neg); Leukocyte Esterase, Urine Neg (Neg); Nitrite, Urine Neg (Neg); Protein, Urine 2+ (Neg); Urobilinogen, Urine NORM (Normal)
[2019-01-09 15:36] LABS: White Blood Cells, Urine 0-2 /hpf (0-5)
[2019-01-09 15:37] LABS: Bacteria Few /hpf; Squamous Epithelial Cells Not Seen /hpf (Few)
[2019-01-09 16:15] LABS: Influenza A Positive (NEGATIVE); Influenza B Negative (NEGATIVE)
== END 2019-01-09 17:25 | disposition home or self-care (01) ==
LOC: ER 13:11
PROVIDERS: Emergency Medicine; Physician Assistant
DX: J10.1 Influenza due to other identified influenza virus with other respiratory manifestations (principal); J44.1 Chronic obstructive pulmonary disease with (acute) exacerbation; Z88.0 Allergy status to penicillin; Z88.8 Allergy status to other drugs, medicaments and biological substances; Z79.899 Other long term (current) drug therapy; Z79.52 Long term (current) use of systemic steroids; I10 Essential (primary) hypertension; Z87.891 Personal history of nicotine dependence; Z85.46 Personal history of malignant neoplasm of prostate
CPT/HCPCS: 36415; 36600; 71046; 80053; 81001; 82803; 83605; 83880; 84484; 85025; 85610; 85730; 87086; 87804; 93005; 93010; 94644; 99285-25; J7030

== ENCOUNTER 2019-11-03 03:45 | Observation (INO) | payer MEDICARE, BC ==
[~2019-11-03] VITALS: Ht 175.3 cm; Wt 107.2 kg
[~2019-11-03 03:45] MED LIST changes: -TORS10; +TORS10 PO
[2019-11-03 04:17] LABS: BASOPHILS ABSOLUTE AUTO 0.06 K/mm3 (0.00-0.23); BASOPHILS PERCENT AUTO 1 % (0-2); EOSINOPHILS ABSOLUTE AUTO 0.55 K/mm3 (0.00-0.68); EOSINOPHILS PERCENT AUTO 8 % (0-6); Hematocrit 44.6 % (37.0-53.0); Hemoglobin 14.5 g/dL (13.5-17.5); IMMATURE GRAN ABSOLUTE AUTO 0.02 K/mm3 (0.00-0.10); IMMATURE GRAN PERCENT AUTO 0 % (0-1); LYMPHOCYTES ABSOLUTE AUTO 1.89 K/mm3 (0.84-5.20); LYMPHOCYTES PERCENT AUTO 28 % (21-46); MONOCYTES ABSOLUTE AUTO 0.62 K/mm3 (0.16-1.47); MONOCYTES PERCENT AUTO 9 % (4-13); Mean Corpuscular HGB Conc 32.5 g/dL (31.5-36.5); Mean Corpuscular Volume 92 fL (80-100); Mean Platelet Volume 9.6 fL (9.1-12.4); NEUTROPHILS ABSOLUTE AUTO 3.73 K/mm3 (1.96-9.15); NEUTROPHILS PERCENT AUTO 54 % (41-73); Platelet Count 194 K/mm3 (150-400); RDW Coefficient Variation 13.1 % (11.7-14.2); RDW Standard Deviation 44.2 fL (35.1-46.3); Red Blood Cell Count 4.84 M/mm3 (4.30-5.90); White Blood Cell Count 6.87 K/mm3 (4.00-11.30)
[2019-11-03 04:30] LABS: Alanine Aminotransfer (ALT/SGP 34 U/L (12-78); Albumin, Blood 3.9 g/dL (3.4-5.0); Albumin/Globulin Ratio 1.1 (0.8-1.8); Alk Phos 129 U/L (50-136); Anion Gap 6 mmol/L (6-16); Aspartate Aminotrans (AST/SGOT 19 U/L (12-37); Blood Urea Nitrogen 17 mg/dL (8-24); Bun/Creatinine Ratio 13.5 (12.0-20.0); CO2, Blood 28 mmol/L (21-32); Calcium, Blood 8.7 mg/dL (8.5-10.1); Chloride, Blood 109 mmol/L (98-108); Creatinine, Blood 1.26 mg/dL (0.60-1.20); Globulin, Blood 3.4 g/dL (2.2-4.0); Glomerular Filtration Rate 59 (60-); Glucose, Blood 123 mg/dL (70-99); Potassium, Blood 4.2 mmol/L (3.5-5.5); Sodium, Blood 143 mmol/L (136-145); Total Protein, Blood 7.3 g/dL (6.4-8.2); Troponin I <0.015 ng/mL (0.000-0.040)
[2019-11-03 06:24] LABS: Source, Urine Clean Catch
[2019-11-03 06:27] LABS: Appearance, Urine Clear (Clear); Bilirubin, Urine Neg (Neg); Blood, Urine 1+ (Neg); Color, Urine Yellow (P-Yellow); Glucose Qualitative, Urine Neg (Neg); Ketones, Urine Neg (Neg); Leukocyte Esterase, Urine 1+ (Neg); Nitrite, Urine Neg (Neg); Protein, Urine 2+ (Neg); Specific Gravity, Urine 1.015 (1.003-1.022); Urobilinogen, Urine NORM (Normal)
[2019-11-03 06:36] LABS: Bacteria Few /hpf; Red Blood Cells, Urine 0-2 /hpf (0-2); Squamous Epithelial Cells Few /hpf (Few)
--- NOTE | 2019-11-03 07:30 | NUR ---
PT ADMITTED- LATE ENTRY PT ADMITTED TO 331 IN STABLE CONDTION. VSS. PT ORIENTED TO ROOM. CALL LIGHT GIVEN TO PT. NO SIGNS OF RESP DISTRESS. PT GIVEN WATER.
--- NOTE | 2019-11-03 14:17 | NUR ---
CODE STATUS DR. JOSEPH NOTIFIED THAT PT WOULD LIKE TO BE A FULL CODE. STATED SHE WILL ADDRESS THIS WHEN SHE ROUNDS ON THE PT.
--- NOTE | 2019-11-03 16:42 | NUR ---
SHIFT SUMMARY PT POLST COPIED AND PLACED AT FRONT OF CHART. DR. JOSEPH AWARE THAT PT WANTS TO BE A FULL CODE. PT DAUGHTER BROUGHT IN HOME CPAP. CONT. PULSE OX IN PLACE. NO OTHER CHANGES IN ASSESSMENT AT THIS TIME. VSS. WILL CONTINUE TO MONITOR UNTIL TURNOVER IS COMPLETE.
[2019-11-03 19:20] LABS: Adenovirus Not Detected (NOT DETECT); Bordetella pertussis Not Detected (NOT DETECT); Chlamydophila pneumoniae Not Detected (NOT DETECT); Coronavirus 229E Not Detected (NOT DETECT); Coronavirus HKU1 Not Detected (NOT DETECT); Coronavirus NL63 Not Detected (NOT DETECT); Coronavirus OC43 Not Detected (NOT DETECT); Human Metapneumovirus Not Detected (NOT DETECT); Human Rhinovirus/Enterovirus Not Detected (NOT DETECT); Influenza A Not Detected (NOT DETECT); Influenza A/2009-H1 Not Detected (NOT DETECT); Influenza A/H1 Not Detected (NOT DETECT); Influenza A/H3 Not Detected (NOT DETECT); Influenza B Not Detected (NOT DETECT); Mycoplasma pneumoniae Not Detected (NOT DETECT); Parainfluenza Virus 1 Not Detected (NOT DETECT); Parainfluenza Virus 2 Not Detected (NOT DETECT); Parainfluenza Virus 3 Not Detected (NOT DETECT); Parainfluenza Virus 4 Not Detected (NOT DETECT); Respiratory Syncytial Virus Not Detected (NOT DETECT)
--- NOTE | 2019-11-04 00:13 | NUR ---
RT IN FOR BREATHNG TX. BACK ON CPAP AND RESTING. CALL LIGHT IN REACH.
--- NOTE | 2019-11-04 04:12 | NUR ---
SHIFT SUMMARY PATIENT HAD NO ACUTE CHANGES OBSERVED. AXOX 3 AND SBA TO BR. USES URINAL AT BEDSIDE. PIV REMAINS INTACT. ON HOME CPAP STATING 92% CONTINUOUS PULSE OXIMETRY AND ROOM AIR. RT IN FOR BREATHING TX T/O SHIFT. DENIES PAIN AND N/V. VSS/AFEBRILE. CALL LIGHT IN REACH. BED IN LOWEST POSITION. WILL CONTINUE TO MONITOR UNTIL DAY SHIFT NURSE ASSUMES CARE.
[2019-11-04 05:58] LABS: Albumin, Blood 3.4 g/dL (3.4-5.0); Anion Gap 8 mmol/L (6-16); Blood Urea Nitrogen 25 mg/dL (8-24); Bun/Creatinine Ratio 20.2 (12.0-20.0); CO2, Blood 24 mmol/L (21-32); Chloride, Blood 107 mmol/L (98-108); Creatinine, Blood 1.24 mg/dL (0.60-1.20); Glomerular Filtration Rate 60 (60-); Glucose, Blood 126 mg/dL (70-99); Phosphorus, Blood 2.5 mg/dL (2.5-4.9); Potassium, Blood 4.3 mmol/L (3.5-5.5); Sodium, Blood 139 mmol/L (136-145)
[2019-11-04] MEDS ORDERED: Prednisone10 MG PO (10:06)
[2019-11-04] MEDS ORDERED: AZIT500 PO (10:06)
--- NOTE | 2019-11-04 13:15 | NUR ---
SHIFT SUMMARY PT AWAKE AT START OF SHIFT, SITTING IN CHAIR AT BS. PT INDEPENDENT IN RM USING FWW. ADMITTED FOR COPD EXAC; IMPROVING. PT RECEIVED RT TX'S AND STEROIDS PER EMAR. DR JOSEPH IN EARLY TO SEE PT. D/C ORDERS PLACED. PT DRESSED SELF AND GATHERED HIS OWN BELONGINGS. PT CALLED FOR W/C WHEN WAS WAITING DOWN STAIRS. PT ASSISTED OUT VIA W/C BY STULL INSTALLER.
== END 2019-11-04 10:57 | disposition home or self-care (01) ==
LOC: ER 03:45 → MEDS 03:46 → ENPENDDIS 11-04 09:00 → MEDS 11-04 10:57
PROVIDERS: Emergency Medicine; Internal Medicine; ADMIT Hospitalist
DX: J44.1 Chronic obstructive pulmonary disease with (acute) exacerbation (principal); I10 Essential (primary) hypertension; G47.33 Obstructive sleep apnea (adult) (pediatric); I49.5 Sick sinus syndrome; E78.5 Hyperlipidemia, unspecified; K21.9 Gastro-esophageal reflux disease without esophagitis; Z95.0 Presence of cardiac pacemaker; Z87.891 Personal history of nicotine dependence; Z79.899 Other long term (current) drug therapy; Z79.02 Long term (current) use of antithrombotics/antiplatelets; Z79.51 Long term (current) use of inhaled steroids
CPT/HCPCS: 0099U; 36415; 71045; 80053; 80069; 81001; 83880; 84484; 85025; 87086; 93005; 93010; 94640; 94762; 96372; 96374; 99285-25; G0378; J1650; J2930; J7512

== ENCOUNTER → 2021-11-27 | Outpatient (CLI) | payer MEDICARE, BC ==
[~2021-11-27] MED LIST changes: +ALBU2.5V5 INH; +AZIT500 PO; +BUDESONIDE0.5 MG/21 INH; +CYAN500 PO; +LOSA25 PO; +POTA10T PO; +Prednisone10 MG PO; +STIOLTO RESPIMAT4 G1 INH; +VIT1CAPS12; +Ventolin/Prove6.7 GM INH
[2021-11-27 13:50] LABS: Source, Urine Clean Catch
[2021-11-27 15:31] LABS: Bilirubin, Urine Neg (Neg); Blood, Urine 1+ (Neg); Glucose Qualitative, Urine Neg (Neg); Ketones, Urine Neg (Neg); Leukocyte Esterase, Urine 1+ (Neg); Nitrite, Urine Neg (Neg); Protein, Urine 1+ (Neg); Urobilinogen, Urine NORM (Normal)
[2021-11-27 15:53] LABS: Appearance, Urine Hazy (Clear); Color, Urine Pale Yellow (P-Yellow)
[2021-11-27 15:54] LABS: Bacteria Rare /hpf; Squamous Epithelial Cells Rare /hpf (Few)
[2021-11-27 15:55] LABS: Amorphous Light (0-Heavy)
== END ==
LOC: LAB SHORT 13:48
PROVIDERS: Internal Medicine
DX: N39.0 Urinary tract infection, site not specified (principal)
CPT/HCPCS: 81001; 87086

== ENCOUNTER 2022-10-05 07:06 | Inpatient (IN) | payer MEDICARE, BC ==
[~2022-10-05] VITALS: Ht 182.9 cm; Wt 101.7 kg
[2022-10-05] MEDS ORDERED: Acetaminophen650 M1 PO (07:44)
[2022-10-05] MEDS ORDERED: 1/2 NS 250ml250 ML (07:45)
[2022-10-05] MEDS ORDERED: Keflex250 MG PO (07:45)
[2022-10-05] MEDS ORDERED: TUMS500 MG PO (07:46)
[2022-10-05] MEDS ORDERED: CEPH250A PO (07:46)
[2022-10-05 08:20] LABS: BASOPHILS ABSOLUTE AUTO 0.03 K/mm3 (0.00-0.23); BASOPHILS PERCENT AUTO 1 % (0-2); EOSINOPHILS ABSOLUTE AUTO 0.07 K/mm3 (0.00-0.68); EOSINOPHILS PERCENT AUTO 2 % (0-6); Hematocrit 36.9 % (37.0-53.0); Hemoglobin 12.7 g/dL (13.5-17.5); IMMATURE GRAN ABSOLUTE AUTO 0.01 K/mm3 (0.00-0.10); IMMATURE GRAN PERCENT AUTO 0 % (0-1); LYMPHOCYTES ABSOLUTE AUTO 0.57 K/mm3 (0.84-5.20); LYMPHOCYTES PERCENT AUTO 13 % (21-46); MONOCYTES ABSOLUTE AUTO 1.05 K/mm3 (0.16-1.47); MONOCYTES PERCENT AUTO 23 % (4-13); Mean Corpuscular HGB 30.2 pg (26.0-34.0); Mean Corpuscular HGB Conc 34.4 g/dL (31.5-36.5); Mean Corpuscular Volume 88 fL (80-100); Mean Platelet Volume 9.1 fL (9.1-12.4); NEUTROPHILS ABSOLUTE AUTO 2.76 K/mm3 (1.96-9.15); NEUTROPHILS PERCENT AUTO 61 % (41-73); Platelet Count 160 K/mm3 (150-400); RDW Coefficient Variation 13.5 % (11.7-14.2); RDW Standard Deviation 43.8 fL (35.1-46.3); White Blood Cell Count 4.49 K/mm3 (4.00-11.30)
[2022-10-05 08:27] LABS: Influenza A, PCR NEGATIVE (NEGATIVE); Influenza B, PCR NEGATIVE (NEGATIVE); Resp Syncytial Virus, PCR NEGATIVE (NEGATIVE)
[2022-10-05 08:34] LABS: SARS-Cov-2 (COVID-19) PCR, MMC POSITIVE (NEGATIVE)
[2022-10-05 08:39] LABS: Albumin, Blood 3.5 g/dL (3.4-5.0); Albumin/Globulin Ratio 1.1 (0.8-1.8); Bilirubin, Total 0.8 mg/dL (0.1-1.0); Bun/Creatinine Ratio 13.6 (12.0-20.0); Calcium, Blood 8.4 mg/dL (8.5-10.1); Creatinine, Blood 1.25 mg/dL (0.60-1.20); Globulin, Blood 3.1 g/dL (2.2-4.0); Potassium, Blood 4.2 mmol/L (3.5-5.5); Total Protein, Blood 6.6 g/dL (6.4-8.2)
--- NOTE | 2022-10-05 20:00 | NUR ---
THE PATIENT IS AN 82 YEAR-OLD MALE WITH A DIAGNOSIS OF COPD EXACERBATION /C COVID-19 INFECTION. A&OX4. PATIENT EFFECTIVELY COMMUNICATES NEES. STAND-BY ASSIST. CALL LIGHT WITHIN REACH. BED LOW AND LOCKED. VSS. NO ACUTE CONCERNS AT THIS TIME. THIS RN WILL CONTINUE TO CLOSELY MONITOR.
--- NOTE | 2022-10-06 03:30 | NUR ---
CLIENT DELIVERY MANAGER SUMMARY THE PATIENT IS AN 82 YEAR-OLD MALE WITH A DIAGNOSIS OF A COPD EXACERBATION /C AN ACTIVE COVID-19 INFECTION. VSS. RR EVEN AND UNLABORED ON RA, MAINTAINING O2 >90%. PATIENT DONS BIPAP DURING SLEEP. A&OX4. PATIENT EFFECTIVELY COMMUNICATES NEEDS. STAND-BY ASSIST. 2+ PITTING EDEMA TO BLE; ELEVATION ENCOURAGED. NO ACUTE CONCERNS AT THIS TIME. THIS RN WILL CONTINUE TO CLOSELY MONITOR. CALL LIGHT WITHIN REACH. BED LOW AND LOCKED.
[2022-10-06 06:45] LABS: Hematocrit 37.4 % (37.0-53.0); Hemoglobin 12.7 g/dL (13.5-17.5); Mean Corpuscular HGB 29.6 pg (26.0-34.0); Mean Corpuscular Volume 87 fL (80-100); Mean Platelet Volume 9.7 fL (9.1-12.4); Platelet Count 172 K/mm3 (150-400); RDW Coefficient Variation 13.4 % (11.7-14.2); Red Blood Cell Count 4.29 M/mm3 (4.30-5.90); White Blood Cell Count 4.29 K/mm3 (4.00-11.30)
[2022-10-06 07:11] LABS: Bun/Creatinine Ratio 18.8 (12.0-20.0); Calcium, Blood 9.1 mg/dL (8.5-10.1); Creatinine, Blood 1.28 mg/dL (0.60-1.20); Magnesium, Blood 2.3 mg/dL (1.6-2.4)
--- NOTE | 2022-10-06 15:19 | NUR ---
PT PROGRESSIVELY CONFUSED, PT UNABLE TO REMEMBER EVENTS FROM CURRENT DAY. FOREGTS WHO HIS NURSE IS OR HOW TO USE CALL LIGHT. WILL CONTINUE TO MONITOR. CHAIR ALARM ON.
--- NOTE | 2022-10-06 17:31 | NUR ---
SHIFT SUMMARY- PT AGITATED AND PARANOID THROUGHOUT SHIFT. INCONTENT. ON RA. SOB WITH MOVEMENT. APPETITE GOOD. PT WANDERED HALLWAY LOOKING FOR "LOST HYDRO PLANT TECHNICIAN" HYDRO PLANT TECHNICIAN WAS LOCATED IN ROOM WHERE HE HAD IT LAST. PT IS SOMEWHAT REDIRECTABLE BUT DOES GET ANXIOUS WHEN DISCUSSING EVENT THROUGHOUT THE DAY THAT HE BELIEVED DID HAPPEN. A&O X2. BLADDER SCAN SUGGESTED 186ML @ 1715. ATTENDS WHERE SATURATED AT THAT POINT. PT STATED HE DOES NOT KNOW WHEN HE VOIDS. AFEBRILE. NO O2 NEEDED THIS SHIFT, SAT 94-97% ON RA. WILL CONITUE TO MONITOR. CALL LIGHT IN REACH, BED/CHAIR ALARM ON.
[2022-10-06 19:39] LABS: Source, Urine Clean Catch
[2022-10-06 19:44] LABS: Appearance, Urine Clear (Clear); Bilirubin, Urine Neg (Neg); Blood, Urine 1+ (Neg); Color, Urine Yellow (P-Yellow); Glucose Qualitative, Urine Neg (Neg); Ketones, Urine Neg (Neg); Leukocyte Esterase, Urine Neg (Neg); Nitrite, Urine Neg (Neg); Protein, Urine 1+ (Neg); Specific Gravity, Urine 1.015 (1.003-1.022); Urobilinogen, Urine NORM (Normal)
[2022-10-06 19:50] LABS: Bacteria Rare /hpf; Red Blood Cells, Urine 0-2 /hpf (0-2); Squamous Epithelial Cells Rare /hpf (Few); White Blood Cells, Urine 0-2 /hpf (0-5)
[2022-10-07 12:53] LABS: BASOPHILS PERCENT AUTO 0 % (0-2); EOSINOPHILS ABSOLUTE AUTO 0.01 K/mm3 (0.00-0.68); EOSINOPHILS PERCENT AUTO 0 % (0-6); Hemoglobin 14.4 g/dL (13.5-17.5); IMMATURE GRAN ABSOLUTE AUTO 0.03 K/mm3 (0.00-0.10); IMMATURE GRAN PERCENT AUTO 0 % (0-1); LYMPHOCYTES PERCENT AUTO 3 % (21-46); MONOCYTES ABSOLUTE AUTO 0.34 K/mm3 (0.16-1.47); MONOCYTES PERCENT AUTO 4 % (4-13); Mean Corpuscular HGB 29.8 pg (26.0-34.0); Mean Corpuscular HGB Conc 34.3 g/dL (31.5-36.5); Mean Corpuscular Volume 87 fL (80-100); Mean Platelet Volume 9.2 fL (9.1-12.4); NEUTROPHILS PERCENT AUTO 93 % (41-73); Platelet Count 207 K/mm3 (150-400); RDW Coefficient Variation 13.5 % (11.7-14.2); RDW Standard Deviation 42.6 fL (35.1-46.3); Red Blood Cell Count 4.84 M/mm3 (4.30-5.90); White Blood Cell Count 8.98 K/mm3 (4.00-11.30)
[2022-10-07 13:06] LABS: Bun/Creatinine Ratio 25.8 (12.0-20.0); Creatinine, Blood 1.2 mg/dL (0.60-1.20); Potassium, Blood 3.7 mmol/L (3.5-5.5)
--- NOTE | 2022-10-07 19:05 | NUR ---
pt was irritable this am, and confused about events, but got better by this evening. pt/ot working with him, he abulated into the bathroom a few times, using a walker, no further changes this shift. call light in reach.
--- NOTE | 2022-10-08 03:17 | NUR ---
SHIFT SUMMARY NO OVERNIGHT EVENTS. PT REMAINS ON ROOM AIR, CPAP AT NIGHT WITH 5L BLEED IN, REQUESTING DUONEBS THROUGHOUT NIGHT. NONPRODUCTIVE COUGH. PT PLEASANTLY CONFUSED/FORGETFUL, NO BEHAVIORAL ISSUES. PT INCONTINENT OF URINE. CALL LIGHT IN REACH, BED ALARM ON.
--- NOTE | 2022-10-08 08:00 | NUR ---
pt sitting up in his chair, is less confused than yesterday, cooperative with care, lungs are dim with occ wheeze t/o, resp even and unlabored, no cough noted at this time, uses his cpap when napping, and at hs, hrr, 2+ edema noted to b/l le, cap refill < 3sec, vs stable, afebrile, piv to rfa site clear and patent, btx4, abd round soft nontender, reports bm yesterday, voids without diff, skin c/w/d, amina, gabriela, call light in reach.
--- NOTE | 2022-10-08 18:30 | NUR ---
pt has had nausea since around 1600, was given zofran with relief initially, then began activly vomiting, notied Dr. Hannon recieved order for phenergan, gave 25mg po, was initially effective and was feeling better than vomited a large amount, charge gave another 12.5mg iv, resting quietly at this time. call light in reach.
[2022-10-08 23:40] LABS: Base Excess Venous 7.1 mmol/L; Bicarbonate Venous 30.2 mmol/L (24.0-30.0); PCO2 Venous 41.5 mmHg (38-42); pH Blood Venous 7.48 (7.34-7.37)
[2022-10-08 23:43] LABS: Hematocrit 40.6 % (37.0-53.0); Hemoglobin 14.2 g/dL (13.5-17.5)
--- NOTE | 2022-10-09 05:13 | NUR ---
SHIFT SUMMARY: Pt A/Ox2-3 and forgetful at times- bed alarms on for safety. Respiratory Scientist noted that his pulse rate on the continous pulse ox was jumping up and down- notified for a tele order. Order placed and tele put on pt. Tele confirmed a-fib. around 2214 tele called to notify song writer that pt had a-fib RVR in the 150's. notified, MD ordered IV metoprolol. This was given x1. after this HR went down and no furtehr tele calls during the night. Pt had been N/V zofran given. Pt later vomited what appeared to be blood tinged vomit. notified. d/c lovenox and plavix and ordered hgb/hct. These labs were WNL. BP remains stable, currently on RA with O2 >93%. CPAP not placed overnight per RT/song writer judgement as pt had multiple bouts of emesis overnight. VBC checked to be sure no CO2 was retained prior to this decision. Pt was incontienet overnight.
[2022-10-09 12:31] LABS: BASOPHILS ABSOLUTE AUTO 0.02 K/mm3 (0.00-0.23); BASOPHILS PERCENT AUTO 0 % (0-2); EOSINOPHILS PERCENT AUTO 0 % (0-6); Hematocrit 42.2 % (37.0-53.0); Hemoglobin 14.4 g/dL (13.5-17.5); IMMATURE GRAN ABSOLUTE AUTO 0.05 K/mm3 (0.00-0.10); IMMATURE GRAN PERCENT AUTO 0 % (0-1); LYMPHOCYTES ABSOLUTE AUTO 0.43 K/mm3 (0.84-5.20); LYMPHOCYTES PERCENT AUTO 3 % (21-46); MONOCYTES PERCENT AUTO 8 % (4-13); Mean Corpuscular HGB 29.5 pg (26.0-34.0); Mean Corpuscular HGB Conc 34.1 g/dL (31.5-36.5); Mean Corpuscular Volume 87 fL (80-100); Mean Platelet Volume 9.4 fL (9.1-12.4); NEUTROPHILS ABSOLUTE AUTO 12.07 K/mm3 (1.96-9.15); NEUTROPHILS PERCENT AUTO 88 % (41-73); Platelet Count 214 K/mm3 (150-400); RDW Coefficient Variation 13.2 % (11.7-14.2); RDW Standard Deviation 42.1 fL (35.1-46.3); Red Blood Cell Count 4.88 M/mm3 (4.30-5.90); White Blood Cell Count 13.67 K/mm3 (4.00-11.30)
--- NOTE | 2022-10-09 18:06 | NUR ---
SHIFT SUMMARY NO ACUTE CHANGES DURING SHIFT. PT REMAINS ALERT AND ORIENTED, CALLS APPROPRIATELY. PT REMAINS AFIB ON TELE MONITOR, LOW 100'S. PTS HR OCCASIONALLY JUMPED TO 150'S, PRN METOPROLOL GIVEN, MONITOR FOR EFFECTIVENESS. PT REMAINS ON 2L NC, SPO2 > 90%. PT INCONTINENT, ATTENDS IN PLACE. WILL CONTINUE TO MONITOR, CALL LIGHT WITHIN REACH.
--- NOTE | 2022-10-10 04:15 | NUR ---
SHIFT SUMMARY: Pt A/Ox4. Overnight pt had nausea/retching but no emesis. He recieved his PRN zofran and phenergan. He at times needed up 4.5L of O2, currently is on 3L NC. He recieved breathing tx. He stated "I dont want to wear this oxygen it does nothing for me" Tree Expert educated him on importance of oxygen therapy and why he needed it. Pt continued to state "I really don't want to wear it still." RT also educated him but same response towards them. Tree Expert will pass this along to day shift for a potential palliative consult. PRN IV metoprolol given for HR that would be in the 150's-170's. After recieved med HR went down to 105.
--- NOTE | 2022-10-10 04:58 | NUR ---
Pt now back on 4L of oxygen NC.
--- NOTE | 2022-10-10 05:25 | NUR ---
EVENT; Recieved call from tele that pt had been sustaining in the 150's a-fib RVR for >5min. paged as pt could not recieve PRN IV metoprlol for over an hour. stated to order an additional dose to be given now.
[2022-10-10 06:12] LABS: BASOPHILS ABSOLUTE AUTO 0.01 K/mm3 (0.00-0.23); BASOPHILS PERCENT AUTO 0 % (0-2); EOSINOPHILS PERCENT AUTO 0 % (0-6); Hematocrit 42.9 % (37.0-53.0); Hemoglobin 14.5 g/dL (13.5-17.5); IMMATURE GRAN ABSOLUTE AUTO 0.06 K/mm3 (0.00-0.10); IMMATURE GRAN PERCENT AUTO 0 % (0-1); LYMPHOCYTES ABSOLUTE AUTO 0.52 K/mm3 (0.84-5.20); LYMPHOCYTES PERCENT AUTO 4 % (21-46); MONOCYTES ABSOLUTE AUTO 0.93 K/mm3 (0.16-1.47); MONOCYTES PERCENT AUTO 7 % (4-13); Mean Corpuscular HGB 29.7 pg (26.0-34.0); Mean Corpuscular HGB Conc 33.8 g/dL (31.5-36.5); Mean Corpuscular Volume 88 fL (80-100); Mean Platelet Volume 9.6 fL (9.1-12.4); NEUTROPHILS ABSOLUTE AUTO 12.26 K/mm3 (1.96-9.15); NEUTROPHILS PERCENT AUTO 89 % (41-73); Platelet Count 223 K/mm3 (150-400); RDW Coefficient Variation 13.2 % (11.7-14.2); RDW Standard Deviation 43.1 fL (35.1-46.3); Red Blood Cell Count 4.89 M/mm3 (4.30-5.90); White Blood Cell Count 13.78 K/mm3 (4.00-11.30)
[2022-10-10 07:26] LABS: Bun/Creatinine Ratio 35.3 (12.0-20.0); Creatinine, Blood 1.5 mg/dL (0.60-1.20); Potassium, Blood 3.4 mmol/L (3.5-5.5)
--- NOTE | 2022-10-10 18:13 | NUR ---
SHIFT SUMMARY PT AxOx4. PLEASANT AND COOPERATIVE WITH CARE. PT REPORTS "FEELING LIKE CRAP" THIS SHIFT AND WITHDRAWN BEHAVIOR NOTED. PT DECLINED TO GET OUT OF BED TODAY. PT WAS MEDICATED FOR BACK PAIN x1 AND PROVIDED A HEATING PAD ALONG WITH Q2 REPOSITIONING. PT REPORTS SOB WITH ACTIVITY. CURRENTLY USING 4L O2 VIA NC WITH CONT BIOX IN PLACE, READING O2 SAT >92%. PT HAS VERY POOR APPETITE AND IS NOT ABLE TO EAT MUCH WITHOUT FEELING NAUSEOUS. FAMILY IN ROOM THIS SHIFT. PROVIDER ROUNDING WITH FAMILY AT BEDSIDE. FAMILY UPDATED ON PLAN OF CARE. TOOL CRIB LEAD REPORTED RUN OF SINUS TACH x2. MEDICATED PER EMAR WITH MEASURABLE EFFECT. PT IS CURRENTLY RESTING IN BED WITH CPAP ON. PT DECLINED DINNER AND IS ATTEMPTING TO SLEEP. CALL LIGHT IN REACH. PT DENIES ANY NEEDS AT THIS TIME.
[2022-10-11 05:57] LABS: Albumin, Blood 3.3 g/dL (3.4-5.0); Anion Gap 7 mmol/L (6-16); Blood Urea Nitrogen 65 mg/dL (8-24); Bun/Creatinine Ratio 39.6 (12.0-20.0); CO2, Blood 37 mmol/L (21-32); Calcium, Blood 8.9 mg/dL (8.5-10.1); Chloride, Blood 94 mmol/L (98-108); Creatinine, Blood 1.64 mg/dL (0.60-1.20); Glomerular Filtration Rate 41 (60-); Glucose, Blood 173 mg/dL (70-99); Phosphorus, Blood 3.3 mg/dL (2.5-4.9); Potassium, Blood 3.6 mmol/L (3.5-5.5); Sodium, Blood 138 mmol/L (136-145)
--- NOTE | 2022-10-11 06:34 | NUR ---
ORDAINED MINISTER SUMMARY: DROWSY AND SLEEPING MAJORITY OF THE NIGHT BUT AROUSABLE. CPAP AND BIOX ALL NIGHT. NO C/O PAIN. LABS DRAWN THIS AM; NOTHING CRITICAL AT THIS TIME. TELE AFIB @ 103. MAINTAINING SPO2 >92% WITH DIPS TO 88% WITH CPAP. WILL REPORT TO ONCOMING RN.
[2022-10-11 06:40] LABS: Hematocrit 42.8 % (37.0-53.0); Hemoglobin 14.3 g/dL (13.5-17.5); Mean Corpuscular HGB 29.7 pg (26.0-34.0); Mean Corpuscular HGB Conc 33.4 g/dL (31.5-36.5); Mean Corpuscular Volume 89 fL (80-100); Mean Platelet Volume 9.7 fL (9.1-12.4); Platelet Count 228 K/mm3 (150-400); RDW Coefficient Variation 13.3 % (11.7-14.2); RDW Standard Deviation 43.4 fL (35.1-46.3); Red Blood Cell Count 4.82 M/mm3 (4.30-5.90); White Blood Cell Count 11.91 K/mm3 (4.00-11.30)
[2022-10-11 13:44] LABS: SARS-Cov-2 (COVID-19) PCR, MMC POSITIVE (NEGATIVE)
--- NOTE | 2022-10-11 17:46 | NUR ---
SHIFT SUMMARY PATIENT IS ALERT AND ORIENTED 2-3. VITAL SIGNS REVIEWED. PATIENT HAS HAD O2 NEEDS INCREASED TO 10L BLEED IN ON BIPAP. PATIENT HAS BEEN SATTING ABOVE 92 ON THIS SETTING. PATIENT HAS HAD NO OTHER ACUTE EVENTS THIS SHIFT. PATIENT HAS HAD NO COMPLAINTS OF SOB, NAUSEA, PAIN OR VOMITTING THIS SHIFT. BED IN LOCKED AND LOWEST POSITION. CALL LIGHT IN PLACE. WILL MONITOR UNTIL SHIFT CHANGE.
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
[2022-10-12 06:55] LABS: Albumin, Blood 3.2 g/dL (3.4-5.0); Anion Gap 7 mmol/L (6-16); Blood Urea Nitrogen 84 mg/dL (8-24); Bun/Creatinine Ratio 48.8 (12.0-20.0); CO2, Blood 32 mmol/L (21-32); Calcium, Blood 8.8 mg/dL (8.5-10.1); Chloride, Blood 99 mmol/L (98-108); Creatinine, Blood 1.72 mg/dL (0.60-1.20); Glomerular Filtration Rate 39 (60-); Glucose, Blood 161 mg/dL (70-99); Potassium, Blood 3.8 mmol/L (3.5-5.5); Sodium, Blood 138 mmol/L (136-145)
[2022-10-12 09:42] LABS: PCO2 Arterial 46.3 mmHg (35-45); PO2 Arterial 59.4 mmHg (80-100); pH Blood Arterial 7.46 (7.35-7.45)
--- NOTE | 2022-10-12 12:23 | NUR ---
2583- RN CALLED DR JOSEPH INTO VISUALIZE PT WORK OF BREATHING IS GETTING DIFFICULT- PT STATES HE IS HAVING DIFFICULTY BREATHING, RR 36, SHALLOW, PT ON HIGH FLOW 9L SATS 92%. PT HAD BEEN UNABLE TO WEAR CPAP ALL NIGHT IN RELATION TO NAUSEA. MEDICATED WITH ZOFRAN 8MG THIS AM AND ALSO WITH FENTANYL FOR BACK PAIN. REPOSITIONED WITH HOB ELEVATED. ORDER FOR ABG, WILL THAN START CPAP. UNABLE TO LAY PT FLAT RELATED TO BACK PAIN, DIFFICULTY CHANGING ATTENDS, PT ABLE TO BRIDGE. REFUSING ALL PO INTAKE, ORAL CARE PERFORMED. ABLE TO BET AM MEDS DOWN. WILL CONT TO TENZIN.
--- NOTE | 2022-10-12 19:46 | NUR ---
SUMMARY- PT ALERT TO SELF AND PLACE, RECOGNIZES FAMILY. IS VERY WITHDRAWN, VERBALIZES MINIMALLY RELATED TO RESP DIFFICULTY. 0930 PT HAD SEVERE DYSPNEA RELATED TO ATTEMPT AT CHANGING ATTENDS, WAS UNABLE TO LAY PT FLAT RELATED TO BACK PAIN. ALSO PT HAVING NAUSEA AND UNABLE TO TOLERATE CPAP THROUGH THE NIGHT. MEDICATED WITH ZOFRAN 8MG AND FENT, MANAGED TO ADMIN PT'S AM MEDS EVEN THOUGH PT GAGS WITH MOST ALL PO INTAKE. PUT ON CPAP 1035 WHEN RR 36, WORE CPAP WITH 9L BLEED IN UNTIL 1330 THAN PT TORE OFF CPAP AND SATS CAME DOWN TO 89%, RN FOUND CPAP MASK ON FLOOR, PT STATES HE COULDN'T BREATH, REPLACED HIGH FLOW NC 9L AND PT BREATHED COMFORTABLY THE REST OF THE SHIFT- PREMEDICATED WITH FENT BEFORE TURN TO BE ABLE TO CHECK SKIN ONCE 1630, TURNED PT AND CHANGED ATTENDS, CHECKED BOTTOM, ONE NEW AREA OF RED NONBLANCHABLE ON BACKSIDE. RED RASH TO L GROIN, CLEANSED ALL AND APPLIED SKIN BARRIER. ATTENDS BACK IN PLACE. ORDER FOR LAXATIVE THIS PM AND TO START IVF X1 L. REPORT GIVEN TO JOAO TO F/U WITH THESE ORDERS. FAMILY AT BEDSIDE ALOT OF THE DAY, FILLED IN ON PT STATUS AND REGRESSION OF RESP STATUS AND INABILITY TO PERFORM ACTIVITIES IN LIGHT OF RESP STATUS. TELE HAS BEEN ST [facility] ALL DAY, SWITCHED FROM AFIB EARLY AM. NOTED RELATIVELY LOW BP IN THE PM, NOC RN INFORMED AND WILL FOLLOW. OF NOTE, PT AND FAMILY REQ REMDEZIVIR BE DC'D IN THE LIGHT OF PT'S LOW GFR, AND PT'S DAUGHTER IS AN RN AND HAS HESITATIONS WITH THIS MED. REPORTED TO DR NAVARRO, OK'D TO BE DC'D AT FAMILYS REQUEST.
[2022-10-13 05:06] LABS: Hematocrit 37.1 % (37.0-53.0); Hemoglobin 12.6 g/dL (13.5-17.5); Mean Corpuscular HGB 29.6 pg (26.0-34.0); Mean Corpuscular Volume 87 fL (80-100); Mean Platelet Volume 9.9 fL (9.1-12.4); Platelet Count 155 K/mm3 (150-400); RDW Coefficient Variation 13.1 % (11.7-14.2); RDW Standard Deviation 41.7 fL (35.1-46.3); Red Blood Cell Count 4.25 M/mm3 (4.30-5.90)
[2022-10-13 05:45] LABS: Albumin, Blood 2.6 g/dL (3.4-5.0); Anion Gap 6 mmol/L (6-16); Blood Urea Nitrogen 87 mg/dL (8-24); Bun/Creatinine Ratio 50.3 (12.0-20.0); CO2, Blood 29 mmol/L (21-32); Calcium, Blood 8.5 mg/dL (8.5-10.1); Chloride, Blood 100 mmol/L (98-108); Creatinine, Blood 1.73 mg/dL (0.60-1.20); Glomerular Filtration Rate 39 (60-); Glucose, Blood 164 mg/dL (70-99); Phosphorus, Blood 3.3 mg/dL (2.5-4.9); Potassium, Blood 4.1 mmol/L (3.5-5.5); Sodium, Blood 135 mmol/L (136-145)
--- NOTE | 2022-10-13 06:13 | NUR ---
Shift Summary Pt on 7L O2 high flow and cont. pulse ox, maintaining O2 SAT> 92 while at rest. Raise O2 to 11L during activity such as attends change. Pt does not tolerate rolling well due to painful back. Pt states little to no nausea t/o the night but still believes he won't be able to keep a pill down while in pain. Took evening medications without issue. Pt requested IV Fentanyl, called hospitalist and got PRN 25 mcg x1. Percocet was ordered for pt today, but he has had a bad experience with that drug in the past and did not want to take it. Used room lift and lift sheet to reposition pt. Stood pt up at the side of the bed for one attends change per pt's request. Pt incontinent voids, changed attends as needed. Turned pt Q4. Pt running SR around 90 with BB and PAC per telemetry. AOx4, pleasant and cooperative with care.
[2022-10-13 10:39] LABS: pH Blood Arterial 7.46 (7.35-7.45)
[2022-10-13 10:40] LABS: PCO2 Arterial 38.2 mmHg (35-45); PO2 Arterial 99.2 mmHg (80-100)
--- NOTE | 2022-10-13 11:09 | NUR ---
LATE ENTRY/919: IN ROOM TO ADMIN MEDS. CONT BIOX ALARMING WITH SATS DOWN TO 69%. RR 38. PT STATING HE'S HAVING A PANIC ATTACK. ATTEMPTS TO ASSIST HIM IN SLOWING HIS BREATHING UNSUCCESSFUL. RT HERE. O2 UP TO 15 L'S TO NO EFFECT. PLACED ON HIS BIPAP WITH NO EFFECT. PLACED CALL TO MD REQUESTING ANTI ANXIETY MEDICATION, RECEIVED ORDERS FOR XANAX .5 MG PO. RT PLACED PT ON AIRVO SATS REMAIN IN THE 70-80's. MECHANICAL DEVELOPER PROVER PLACED CALL TO MD. ORDERS RECEIVED TO TRANSFER PT TO PCU. 1020: REPORT CALLED TO SANDRA PASCAL. 1025:PT TRANSFERRED TO PCU ROOM 18 WITH ALL PERSONAL BELONGINGS, MEDS & CHART. DTR AT BEDSIDE FOR TRANSFER.
--- NOTE | 2022-10-13 17:11 | NUR ---
SHIFT SUMMARY; IN HOUSE TRANSFER FROM MEDICAL FLOOR. BROUGHT VIA BED ON BIPAP. CURRENT SETTINGS 14/7 65% FIO2. A/A/OX4. DIFFICULT TO REPOSITION IN BED, ATTEMPTS TO REFUSE REPOSITIONING SEVERAL TIMES. DESATURATION TO LOW 70'S WITH EXERTION WHEN TRYING TO CHANGE ATTENDS. INCONTINANT OF URINE, SCROTUM EXCORIATED AND RED. DISCUSSED POSSIBLE HICKS, REFUSES MULTIPLE TIMES STATING HE WILL ONLY LET HIS DOCTOR IN [place] [facility] A HICKS. OFFERED CONDOM CATH, PT STATES IT WILL NOT WORK. CONDOM CATH PLACED, WITHIN 1 HOUR CALLED TO ROOM BY PT WHO WAS HOLDING IT AFTER HE REMOVED IT. ATTENDS AND ABSORBANT PADS PLACED. VSS, SATS 95% WITH BIPAP ON. WILL CONTINUE TO MONITOR AND TREAT UNTIL CHANGE OF SHIFT.
--- NOTE | 2022-10-13 22:00 | NUR ---
ASSUMED CARE NOTE: ASSUMED CARE OF PT AT 1900. PT IS ALERT AND ORIENTED X 4. ABLE TO FOLLOW COMMANDS. PT IS VERY WEAK, UNABLE TO ASSIST WITH TURNS. REFUSING SOME TURNS DUE TO CHRONIC BACK PAIN. PT C/O 8/10 PAIN TO MID/LOWER BACK, FENTANYL GIVEN PER ORDER WITH GOOD EFFECT. PT RR INCREASES TO 30'S WITH ACTIVITY AND ANXIETY. ATIVAN GIVEN GIVEN GOOD EFFECT. PT REMAINS OF BIPAP, FiO2 DECREASED TO 55%, TOLERATING WELL, SPO2 ABOVE 90% PT ABDOMEN IS FIRM AND DISTENDED, TENDER TO ALL QUADRANTS. CONDOM CATH APPLIED, DRAININNG TO GRAVITY. PT REPOSITINED WITH LIFT, TOLERATED FAIRLY WELL AFTER PAIN MEDICATION. WILL CONTINUE TO CARE PLAN. CALL LIGHT WITHIN REACH.
[2022-10-14 04:17] LABS: Hematocrit 34.8 % (37.0-53.0); Hemoglobin 11.8 g/dL (13.5-17.5); Mean Corpuscular HGB 29.6 pg (26.0-34.0); Mean Corpuscular HGB Conc 33.9 g/dL (31.5-36.5); Mean Corpuscular Volume 87 fL (80-100); Mean Platelet Volume 9.7 fL (9.1-12.4); Platelet Count 124 K/mm3 (150-400); RDW Coefficient Variation 13.2 % (11.7-14.2); RDW Standard Deviation 41.8 fL (35.1-46.3); Red Blood Cell Count 3.99 M/mm3 (4.30-5.90); White Blood Cell Count 7.77 K/mm3 (4.00-11.30)
[2022-10-14 05:03] LABS: Albumin, Blood 2.6 g/dL (3.4-5.0); Anion Gap 5 mmol/L (6-16); Blood Urea Nitrogen 77 mg/dL (8-24); Bun/Creatinine Ratio 49.7 (12.0-20.0); CO2, Blood 28 mmol/L (21-32); Calcium, Blood 8.2 mg/dL (8.5-10.1); Chloride, Blood 105 mmol/L (98-108); Creatinine, Blood 1.55 mg/dL (0.60-1.20); Glomerular Filtration Rate 44 (60-); Glucose, Blood 154 mg/dL (70-99); Sodium, Blood 138 mmol/L (136-145)
--- NOTE | 2022-10-14 06:52 | NUR ---
SHIFT SUMMARY: PT IS ALERT AND ORIENTED X 3, ABLE TO FOLLOW COMMANDS AND COMMUNICATE NEEDS. PT HAS BEEN C/O PAIN TO BACK, FENTANYL GIVEN PER MAR WITH GOOD EFFECT. PT HAS REMAINED ON BIPAP T/O THE NIGHT, FiO2 TITRATED DOWN TO 45%, SpO2 REAMINING ABOVE 90% ORAL CARE GIVEN Q4HRS. PT RR WILL INCREASE WITH ANXIETY, PRN ATIVAN GIVEN PER MAR WITH GOOD EFFECT, ALONG WITH THERAPUTIC TOUCH AND COMMUNICATION. PT REMAINS IN SR WITH HR IN THE 80'S, BP STABLE. PT IS INCONTINENT OF URINE, UNABLE TO KEEP CONDOM CATH, MANJINDER-PADS CHANGED NEEDS. REPORT GIVEN TO ONCOMING NURSE.
--- NOTE | 2022-10-14 16:33 | NUR ---
END OF SHIFT: NEURO: ALERT AND ORIENTED X 3, MOSTLY 4. PLEASANT, ABLE TO MAKE MOST NEEDS KNOWN, HAS BEEN REFUSING Q2 TURNS DUE TO INCREASED PAIN LEVEL. PROVIDER AWARE. CARDIAC: DENIES CHEST PAIN/PRESSURE. BLOOD PRESSURE HAS BEEN NORMOTENSIVE WITH AM BP AND HR MEDS. PULM: PATIENT WAS ON BIPAP THIS AM CURRENLTY IS ON HNC. SPO2 >92%. STILL VERY DIM AND SHALLOW BREATHS. WEAK COUGH. GI//SKIN: PURWIK IN PLACE, WORKING MOST OF THE TIME. CONDOM CATH KEPT FALLING OFF. PATIENT WAS GIVEN BED BATH AND MEPILEX PLACED. VERY THIN SKIN, PATIENT CUT SELF WITH NAIL EDUCATED AND BANDAID PLACED. PATIENT DOES HAVE NONBLANCHABLE REDNESS ON COCCYX, PATIENT EDUCATED ON CURRENLT ILLNESS, REASON FOR NPO STATUS FROM ST EVALUATION, ICE CHIPS AFTER ORAL CARE. PATIENT DENIED NOON ORAL CARE, AND IS CURRENTLY SLEEPING, WILL CONTINUE TO MONITOR UNTIL SHIFT CHANGE. NO CONCERNS FROM THIS RN AT THIS TIME.
[2022-10-15 03:56] LABS: Base Excess Venous 3.1 mmol/L; Bicarbonate Venous 26.2 mmol/L (24.0-30.0); pH Blood Venous 7.37 (7.34-7.37)
[2022-10-15 04:45] LABS: BASOPHILS ABSOLUTE AUTO 0.02 K/mm3 (0.00-0.23); BASOPHILS PERCENT AUTO 0 % (0-2); EOSINOPHILS PERCENT AUTO 0 % (0-6); Hematocrit 34.1 % (37.0-53.0); Hemoglobin 11.5 g/dL (13.5-17.5); IMMATURE GRAN ABSOLUTE AUTO 0.09 K/mm3 (0.00-0.10); IMMATURE GRAN PERCENT AUTO 1 % (0-1); LYMPHOCYTES ABSOLUTE AUTO 0.31 K/mm3 (0.84-5.20); LYMPHOCYTES PERCENT AUTO 4 % (21-46); MONOCYTES ABSOLUTE AUTO 0.45 K/mm3 (0.16-1.47); MONOCYTES PERCENT AUTO 5 % (4-13); Mean Corpuscular HGB 29.6 pg (26.0-34.0); Mean Corpuscular HGB Conc 33.7 g/dL (31.5-36.5); Mean Corpuscular Volume 88 fL (80-100); Mean Platelet Volume 9.9 fL (9.1-12.4); NEUTROPHILS ABSOLUTE AUTO 8.11 K/mm3 (1.96-9.15); NEUTROPHILS PERCENT AUTO 90 % (41-73); Platelet Count 134 K/mm3 (150-400); RDW Coefficient Variation 13.2 % (11.7-14.2); RDW Standard Deviation 42.8 fL (35.1-46.3); Red Blood Cell Count 3.89 M/mm3 (4.30-5.90); White Blood Cell Count 8.98 K/mm3 (4.00-11.30)
[2022-10-15 05:24] LABS: Bun/Creatinine Ratio 45.1 (12.0-20.0); Creatinine, Blood 1.33 mg/dL (0.60-1.20); Potassium, Blood 4.3 mmol/L (3.5-5.5)
--- NOTE | 2022-10-15 18:57 | NUR ---
SHIFT SUMMARY: PT A&Ox4, O2 SATS >92% ON 4 L NC, DESATS W/ACTIVITY. SR ON MONITOR, RATE 70s-80s. CONDOM CATH REPLACED x2 THIS SHIFT D/TO NOT CONSISTENTLY STAYING ON, ATTENDS IN PLACE AT THIS TIME D/TO PT REQUEST. REPOSITIONING PERFORMED PT TOLERATED. SWALLOW EVAL PERFORMED BY ST, PT ADVANCED TO [facility] SOFT DIET, TOLERATING WELL. AT THIS TIME, PT RESTING IN BED W/CALL LIGHT IN REACH. WILL CONTINUE TO MONITOR AND TREAT ACCORDINGLY UNTIL CHANGE OF SHIFT.
--- NOTE | 2022-10-16 06:04 | NUR ---
NO ISSUES OVERNIGHT, VSS, ALL NEEDS MET, NO BM, CALL LIGHT IN REACH
--- NOTE | 2022-10-16 18:44 | NUR ---
SHIFT SUMMARY: PT A&Ox3-4, SOME MOMENTS OF CONFUSION BUT PT EASILY REDIRECTED. O2 SATS >92%, CURRENTLY RECEVING 2 L NC. SR ON MONITOR, RATE 80s-90s. URINARY DRIBBLING CONTINUES, PT CHANGING BETWEEN CONDOM CATHETERS AND ATTENDS, TOLERATING WELL. PT REPOSITIONED TOLERATED, SOMETIMES POORLY D/TO CHRONIC BACK PAIN. PT TOLERATING MECH SOFT DIET WELL, TAKING MEDICATION WHOLE IN APPLESAUCE/PUDDING, APPROPRIATE FLUID INTAKE. NO BM THIS SHIFT OR YESTERDAY, PT UNABLE TO VERBALIZE LAST BM AND REFUSES BOWEL CARE MEDS THIS AM. AT THIS TIME, PT SITTING UP IN BED W/MEAL TRAY, CALL LIGHT WITHIN REACH. WILL CONTINUE TO MONITOR AND TREAT ACCORDINGLY UNTIL CHANGE OF SHIFT.
[2022-10-17 04:35] LABS: Base Excess Venous 2.3 mmol/L; Bicarbonate Venous 25.3 mmol/L (24.0-30.0); PCO2 Venous 44.9 mmHg (38-42); pH Blood Venous 7.39 (7.34-7.37)
--- NOTE | 2022-10-17 04:39 | NUR ---
PT RESTED ON CPAP ALL NIGHT, VSS, INCONTINENT IN BRIEF, NO BM, NO ISSUES
[2022-10-17 04:54] LABS: Bun/Creatinine Ratio 33.1 (12.0-20.0); Calcium, Blood 8.6 mg/dL (8.5-10.1); Creatinine, Blood 1.36 mg/dL (0.60-1.20); Potassium, Blood 4.2 mmol/L (3.5-5.5)
--- NOTE | 2022-10-17 05:55 | NUR ---
PT REFUSED MANJINDER CARE, TURNING AND BRIEF CHANGES ALL NIGHT DESPITE MULTIPLE ATTEMPTS TO EDUCATE, ALSO REFUSING BOWEL CARE DESPITE LAST REPORTED BM BEING 10/08/22, PT SAYS IT HURTS TO LAY FLAT AND BE REPOSITIONED BUT REFUSES ANY PAIN MEDICATION INCLUDING TYLENOL
--- NOTE | 2022-10-17 18:24 | NUR ---
SHIFT SUMMARY PT ALERT AND ORIENTED, FOLLOWING COMMANDS, SOCORRO. PT INITIALLY HESITANT TO GET OUT OF BED HE IS VERY WEAK, BUT WITH SOME THERAPEUTIC COMMUNICATION AND SUPPORT PT WAS ABLE TO AMBULATE A FEW FEET WITH WALKER, GAIT BELT, AND 2 PERSON SBA TO BEDSIDE CHAIR. PT BECOME DYSPNEIC DURING THIS TIME BUT SATS REMAINED >90% ON 3-6LPM O2 VIA NC. PT IN CHAIR T/O DAY. PHYSICAL THERAPY AT BEDSIDE THIS AFTERNOON, PT STOOD AND TRANSFERRED TO BEDSIDE COMMODE WHERE HE WORKED WITH PHYSICAL THERAPY. PT ABLE TO STAND AND TRANSFER BACK TO BEDSIDE CHAIR. PT TOLERATING MEALS WELL, DENIES COMPLAINTS OTHER THAN SOB WITH MOVEMENT. WILL REPORT TO ONCOMING NURSE.
--- NOTE | 2022-10-18 06:54 | NUR ---
PT REFUSED, TURNING, REPOSITIONING, AND MANJINDER CARE ALL NIGHT AGAIN, PT STATES HE FEELS TERRIBLE AND HE IS VOMITING, NO VOMIT AT ALL NOTED, PT EDUCATED MULTIPLE TIMES REGARDING SKIN BREAKDOWN, HYGIENE, INFECTION RISK, AND GENERAL DECLINE IN OVERALL HEALTH FFROM REFUSING TO MOVE AND TAKE MEDICATIONS, PT CONTINUED TO REFUSE RN AND INFERTILITY MEDICAL ASSISTANT AFTER MULTIPLE ATTEMPTS, FAMILY (DAUGHTER Yu) CALLED THIS AM BECAUSE APPARENTLY PT CALLED HER TO SAY HE WAS VOMITING AND COULD NOT GET HELP, NO VOMIT IN ROOM ANYWHERE, PT ASLEEP WHEN RN ENTERED ROOM, PT REFUSED TO RESPOND TO QUESTIONS AND AGAIN REFUSED CARE, DAUGHTER UPDATED AND STATES SHE WILL BE HERE IN A COUPLE OF HOURS, CALL LIGHT IN REACH, PT CELL PHONE IN LAP, ONCOMING RN UPDATED
--- NOTE | 2022-10-18 11:59 | NUR ---
1130: BARN WORKER CALLED OVER HEAD FOR THIS PT WHO BECAME UNRESPONSIVE WHILE ON THE COMMODE. SEE BARN WORKER SHEET.
--- NOTE | 2022-10-18 14:52 | NUR ---
RAPID/END OF SHIFT PATIENT WAS COMING OFF THE BEDSIDE COMMODE, AT APPROX 1144 PATIENT WAS FEELING WEAK AND BEFORE WE COULD SAFELY TRANSFER PATIENT HAD A NEAR FALL BUT WAS ABLE TO BE PLACED ON BED BY THIS DRILLING MANAGER AND PCT BEFORE FALL. ONCE PATIENT WAS IN BED NEURO ASSESSMENT HAD POSITIVE FINDINGS OF FIXED UPPER LEFT GAZE, UNRESPONSIVE TO TOUCH OR LIGHT. THIS IS WHERE THIS DRILLING MANAGER CALLED MATHEMATICS LECTURER FOR RAPID INTERVENTIONS. PATIENT SLOWLY BECOME RESPONSIVE VITAL SIGNS WERE STABLE AND O2 RESTARTED. PROVIDER AND MATHEMATICS LECTURER AWARE ADDITIONALLY Mamie NORTH ANTIQUE FINISHER CHARGE Alexy EVANS ANTIQUE FINISHER AND MATHEMATICS LECTURER Carolyn BRAVO, MYSELF AND Adele CHRISTIANSEN PCT WERE ALL PRESENT IN ASSESSMENT AND CARE. PATIENT FAMILY HAS BEEN INFORMED AND HAD COMPLETE UNDERSTANDING OF SITUATION. WILL CONTINUE TO MONITOR, PROVIDER CAME SHORTLY AFTER UPDATE FOR ASSESSMENT, PLEASE SEE ORDERS. NO FURTHER CONCERN AFTER PATIENT RECIEVED CONSCIOUSNESS. NO RESIDUAL DEFICIT, ALL EXTREMS X 4 MOVE SELF, PERRLA, PATIENT HAS BEEN MORE ALERT AND ORIENTED, TRAMADOL MAY BE CONTRIBUTING FACTOR. PLEASANT COOPERATIVE WITH CARE BR Q2 TURNS. PATIENT HAS IMPROVED RESPIRATORY EFFORT AND MOVEMENT IN BED SINCE INCIDENT ABOVE. PATIENT HAS CONDOM CATH THAT WAS REPLACED AFTER REMOVAL THIS AM. NO BM AND ABD IS EXTRA FIRM AND BLOATED PROVIDER AWARE, 1 X FLEET ENEMA AND MIRALAX ATTEMPTED. WILL CONTINUE TO MONITOR UNTIL SHIFT CHANGE. PATINET HAS BEEN DENYING ANY CHEST PAIN SOB, NOW PCU STATUS AND TELE IN PLACE.
--- NOTE | 2022-10-18 21:02 | NUR ---
CARE ASSUMPTION: PATIENT LYING ON LEFT SIDE, REFUSED TURN, O2 SAT >92% ON 5L HI-FLOW NC. BP WNL AND AFEBRILE. PATIENT DENIES CHEST PAIN/N/V/D/SOB REPORTS BEING TIRED. ABDOMEN IS VERY DISTENDED AND FIRM, BOWEL TONES WNL. NO BM AT THIS TIME. PATIENT ON BR R/T SYNCOPAL EPISODE IN PREVIOUS SHIFT. CONDOM CATH DRIANING TO GRAVITY. DENIES NEEDS AT THIS TIME. BED LOW WITH CALL LIGHT IN REACH.
[2022-10-19 04:55] LABS: Base Excess Venous 3.3 mmol/L; Bicarbonate Venous 27.6 mmol/L (24.0-30.0); PCO2 Venous 33.1 mmHg (38-42)
[2022-10-19 05:25] LABS: BASOPHILS ABSOLUTE AUTO 0.02 K/mm3 (0.00-0.23); BASOPHILS PERCENT AUTO 0 % (0-2); EOSINOPHILS ABSOLUTE AUTO 0.01 K/mm3 (0.00-0.68); EOSINOPHILS PERCENT AUTO 0 % (0-6); Hematocrit 36.8 % (37.0-53.0); Hemoglobin 12.6 g/dL (13.5-17.5); IMMATURE GRAN ABSOLUTE AUTO 0.11 K/mm3 (0.00-0.10); IMMATURE GRAN PERCENT AUTO 1 % (0-1); LYMPHOCYTES ABSOLUTE AUTO 0.62 K/mm3 (0.84-5.20); LYMPHOCYTES PERCENT AUTO 3 % (21-46); MONOCYTES PERCENT AUTO 8 % (4-13); Mean Corpuscular HGB 29.9 pg (26.0-34.0); Mean Corpuscular HGB Conc 34.2 g/dL (31.5-36.5); Mean Corpuscular Volume 87 fL (80-100); Mean Platelet Volume 9.5 fL (9.1-12.4); NEUTROPHILS PERCENT AUTO 88 % (41-73); Platelet Count 168 K/mm3 (150-400); RDW Coefficient Variation 13.5 % (11.7-14.2); RDW Standard Deviation 43.6 fL (35.1-46.3); Red Blood Cell Count 4.21 M/mm3 (4.30-5.90); White Blood Cell Count 18.06 K/mm3 (4.00-11.30)
--- NOTE | 2022-10-19 05:44 | NUR ---
SHIFT SUMMARY: PATIENT VS WNL ON 5L NC/CPAP. DENIES SOB/CHEST PAIN/N/V/D. NO BM THIS SHIFT. PATIENT PRESENTS FTT AND IS NOT ENGAGED OR HELPFUL IN CARES. CONDOM CATH CHANGED PER PROTOCOL AND DRAINING TATY URINE TO GRAVITY. CPAP IN PLACE T/O NOC. POWERGLIDE FLUSHES BUT DID NOT DRAW FOR AM LABS. MEDICATED PER EMAR - PILLS IN APPLESAUCE. BED LOW WITH CALL LIGHT IN REACH. WILL CONTINUE TO MONITOR UNTIL REPORT TO DAY RN.
[2022-10-19 05:49] LABS: Bun/Creatinine Ratio 32.2 (12.0-20.0); Creatinine, Blood 1.43 mg/dL (0.60-1.20)
--- NOTE | 2022-10-19 06:13 | NUR ---
SHIFT SUMMARY: PATIENT AFEBRILE, O2 SAT >92% ON 5L NC/CPAP, SYS BP 140-150S, HR 80-100S. PATIENT SLEPT WITH CPAP IN PLACE >6 HRS. DENIES CHEST PAIN/N/V/D. NO BM THIS SHIFT. MEDICATED PER EMAR - PILLS IN APPLESAUCE. PATIENT REFUSED SOME Q2 TURNS. COOPERATIVE WITH CARE BUT NOT ENGAGED OR HELPFUL WITH CARE - PRESENTS FTT. HAS NOT USED CALL LIGHT THIS SHIFT - DENIES NEEDS OTHER THAN WATER. POWERGLIDE FLUSHES BUT DID NOT DRAW FOR AM LABS - SITE ECCHYMOTIC. CONDOM CATH CHANGED PER PROTOCOL - DRAINING TATY URINE TO GRAVITY. BED LOW WITH CALL LIGHT IN REACH. WILL CONTINUE TO MONITOR UNTIL REPORT TO DAY RN.
--- NOTE | 2022-10-19 18:45 | NUR ---
ASSUMED CARE OF PT AT 0700 THIS AM. SEE DOCUMENTED VS AND ASSESSMENT. NO CHANGES TO PT CONDITION NOTED T/O THE SHIFT. PT WORKED WITH PT/OT/ST TODAY, SEE NOTES. ABLE TO WEAN PT OFF 02 AND ON RA. BOWEL CARE MEDICATIONS GIVEN THIS AM W/O SUCESS, SUPOSITORY SCHEDULED FOR PM MEDS. PT ABLE TO USE CALL LIGHT FOR NEEDS, CALL LIGHT IN REACH, WILL CONTINUE TO MONITOR AND GIVE REPORT TO NOC SHIFT RN.
--- NOTE | 2022-10-19 22:19 | NUR ---
CARE ASSUMPTION: PATIENT IN BED, VS WNL ON RA, A&O X3. ATTENDS CHANGED AND PATIENT REPOSITIONED. EDUCATION R/T GAS BUILD UP IN ABDOMEN AND HOW TO ENCOURAGE RELEASE. LIFT WORKS WELL FOR REPOSITIONING PATIENT COMFORTABLY. MEDICATED PER EMAR. BED LOW WITH CALL LIGHT IN REACH.
[2022-10-20 05:34] LABS: Hematocrit 33.4 % (37.0-53.0); Hemoglobin 11.3 g/dL (13.5-17.5); Mean Corpuscular HGB Conc 33.8 g/dL (31.5-36.5); Mean Corpuscular Volume 89 fL (80-100); Mean Platelet Volume 9.9 fL (9.1-12.4); Platelet Count 161 K/mm3 (150-400); RDW Coefficient Variation 13.6 % (11.7-14.2); RDW Standard Deviation 44.1 fL (35.1-46.3); Red Blood Cell Count 3.77 M/mm3 (4.30-5.90); White Blood Cell Count 13.16 K/mm3 (4.00-11.30)
[2022-10-20 05:50] LABS: Albumin, Blood 2.3 g/dL (3.4-5.0); Anion Gap 6 mmol/L (6-16); Blood Urea Nitrogen 47 mg/dL (8-24); Bun/Creatinine Ratio 34.6 (12.0-20.0); CO2, Blood 27 mmol/L (21-32); Calcium, Blood 7.9 mg/dL (8.5-10.1); Chloride, Blood 109 mmol/L (98-108); Creatinine, Blood 1.36 mg/dL (0.60-1.20); Glomerular Filtration Rate 52 (60-); Glucose, Blood 104 mg/dL (70-99); Phosphorus, Blood 2.9 mg/dL (2.5-4.9); Potassium, Blood 4.1 mmol/L (3.5-5.5); Sodium, Blood 142 mmol/L (136-145)
--- NOTE | 2022-10-20 07:16 | NUR ---
SHIFT SUMMARY: VS WNL, DENIES SOB/CHEST PAIN/N, NO BM THIS SHIFT. WORE CPAP T/O NIGHT. Q2 TURNS. ATTENDS CHANGED NEEDED. TELE DC'D. BED LOW WITH CALL LIGHT IN REACH. REPORT GIVEN TO DAY RN.
--- NOTE | 2022-10-20 11:28 | NUR ---
CARE NOTE PT ASSISTED FROM CHAIR TO BED FOR BEDPAN USE VIA LIFT, RONAL MCDOWELL ASSISTED THIS RN. PT REPORTED PAIN BUT DECLINED TYLENOL ADMINISTRATION. PT NOW ON BEDPAN, CALL LIGHT IN REACH.
[2022-10-20 15:22] LABS: SARS-Cov-2 (COVID-19) Antigen Positive (NEGATIVE)
--- NOTE | 2022-10-20 18:04 | NUR ---
SHIFT SUMMARY PT IS ALERT AND ORIENTED X 4 BUT IS FORGETFUL AT TIMES. HE IS ABLE TO MAKE HIS NEEDS KNOWN AND HAS USED HIS CALL LIGHT APPROPRIATELY. VSS, HE IS ON ROOM AIR AND SPO2 HAS BEEN 91-93%, HE DOES BECOME DYSPNEIC W/ EXERTION/MOVEMENT. HE REPORTS PAIN IN BACK BUT HAS DENIED NEED FOR MEDICATION MANAGEMENT FOR PAIN, HE REPORTS THAT SLOW MOVEMENT AND REST ASSIST W/ PAIN RELIEF. HE HAS DENIED NAUSEA BUT HAS HAD VERY LITTLE PO INTAKE. HE HAS DENIED CHEST PAIN/PRESSURE. ABD NOTED TO BE SEVERELY DISTENDED, MOBILITY ENCOURAGED APPROPRIATE AND BOWEL CARE PROVIDED PER EMAR ORDERS. PT DID HAVE 2 SMALL BM'S TODAY. HE DENIES ABD DISCOMFORT. Q2 TURNING IMPLIMENTED TO PREVENT SKIN BREAKDOWN, MEPILEX DRESSING IS IN PLACE OVER COCCYX AND BARRIER CREAM/POWDER APPLIED TO MANJINDER AREA. PG IN BARRY IS SALINE LOCKED. HE IS INCONTINENT OF URINE AND IS UNABLE TO NOTIFY STAFFF WHEN SOILED. FREQUENT BRIEF CHANGES IMPLIMENTED TO KEEP SKIN DRY/CLEAN. CALL LIGTH IS IN REACH, WILL CONTINUE TO MONITOR UNTIL REPORT GIVEN.
--- NOTE | 2022-10-20 23:09 | NUR ---
CARE ASSUMPTION: PATIENT O2 SAT >94% ON RA, A&O X3. PATIENT RECEIVED LINEN CHANGE AT BEGINNING OF SHIFT. MEDICATED PER EMAR. PATIENT HESITANT TO TAKE PILLS AND REQUIRES SUCTIONING DURING ADMINISTRATION. PATIENT REPOSITIONED USING LIFT. BED LOW WITH CALL LIGHT IN REACH.
[2022-10-21 04:27] LABS: Albumin, Blood 2.3 g/dL (3.4-5.0); Anion Gap 6 mmol/L (6-16); Blood Urea Nitrogen 42 mg/dL (8-24); Bun/Creatinine Ratio 31.1 (12.0-20.0); CO2, Blood 29 mmol/L (21-32); Calcium, Blood 7.9 mg/dL (8.5-10.1); Chloride, Blood 104 mmol/L (98-108); Creatinine, Blood 1.35 mg/dL (0.60-1.20); Glomerular Filtration Rate 52 (60-); Glucose, Blood 122 mg/dL (70-99); Phosphorus, Blood 2.8 mg/dL (2.5-4.9); Potassium, Blood 3.5 mmol/L (3.5-5.5); Sodium, Blood 139 mmol/L (136-145)
--- NOTE | 2022-10-21 06:29 | NUR ---
SHIFT SUMMARY: PATIENT VS WNL ON RA, DYSPNEA ON EXERTION, PAINFUL TO MOVE BUT REFUSES TYLENOL. PATIENT'S SUCTION NEEDS FOLLOWING PO INTAKE HAS INCREASED THIS SHIFT FROM PREVIOUS NOC SHIFT. EDUCATION R/T IMPORTANCE OF REPOSITIONING AND SITTING AT 90* DURING PO INTAKE PROVIDED. PATIENT DID NOT HAVE BM THIS SHIFT. Q2 TURNS. CONDOM CATH IN PLACE DRAINING TO GRAVITY. USES CALL LIGHT APPROPRIATELY. NO ADVERSE EVENTS THIS SHIFT. BED LOW WITH CALL LIGHT IN PLACE. WILL CONTINUE TO MONITOR UNTIL REPORT TO DAY RN.
--- NOTE | 2022-10-21 18:17 | NUR ---
PT SUMMARY: PT HAS A SUCCESSFUL MEDIUM BM TODAY AFTER ENEMA WAS GIVEN PT ALSO PASSED A LOT OF GAS, ABD STILL REMAIN DISTENDED. PT C/O HIP AND BACK PAIN WHEN MOVED OR TURNED OR LAID FLAT, REPOSITIONED FOR COMFORT. PT ALSO HAS A LOT OF MUCUS SUCTIONED PRN AT BEDSIDE. VITALS HAS BEEN STABLE HRR TACHS UP TO 120'S WITH EXERTION, REMAINS ON RA SATS KEPT ABOVE 90%, AFEBRILE. PT REFUSED MEALS FOR THE SHIFT HAD SOME BREAKFAST THEN REQUESTED TO GET SOME REST FOR THE REST OF THE DAY, OTHER THAN THAT NO OTHER ISSUES ECNOUNTERED. BED BATH COMPLETED. PT TO DC TO SNF IN AM, CPAP ORDERED PER CHANGE COORDINATOR TO BE DELIVERED IN AM, SLEEP STUDY ORDERED WELL. WILL REPORT TO ONCOMING SHIFT
[2022-10-22 06:00] LABS: Albumin, Blood 2.4 g/dL (3.4-5.0); Anion Gap 6 mmol/L (6-16); Blood Urea Nitrogen 43 mg/dL (8-24); Bun/Creatinine Ratio 31.9 (12.0-20.0); CO2, Blood 30 mmol/L (21-32); Calcium, Blood 8.2 mg/dL (8.5-10.1); Chloride, Blood 104 mmol/L (98-108); Creatinine, Blood 1.35 mg/dL (0.60-1.20); Glomerular Filtration Rate 52 (60-); Glucose, Blood 148 mg/dL (70-99); Phosphorus, Blood 3.2 mg/dL (2.5-4.9); Potassium, Blood 3.3 mmol/L (3.5-5.5); Sodium, Blood 140 mmol/L (136-145)
--- NOTE | 2022-10-22 07:32 | NUR ---
SUMMARY SLEEP STUDY COMPLETED WITHOUT DISTURBANCES TONIGHT. PT SLEPT QUIETLY. POSSIBLY PENDING TRANSFER TO CARE FACILITY IF PT CAN RESULT A NEGATIVE COVID ANTIGEN RESULT.
--- NOTE | 2022-10-22 09:02 | NUR ---
CARE NOTE REP FROM [facility] CAME TO BEDSIDE TO DELIVER CPAP FOR PT. PT REFUSED RECIEVING CPAP FROM [facility] STATING THAT "I ALREADY HAVE ONE AT HOME." THIS NURSE EXPLAINED THAT THIS CPAP WOULD BE UTLIZED WHEN PT TRANSFERED TO SNF AND PT STATED "I'VE HAD MULTIPLE BAD EXPERIENCES WITH [facility]." HE ALSO EXPRESSED THAT SOMEONE WOULD BRING HIS HOME CPAP TO SNF TO HIM.
[2022-10-22] MEDS ORDERED: BUSP5 PO (12:20)
[2022-10-22] MEDS ORDERED: DILT180 PO (12:21)
[2022-10-22] MEDS ORDERED: GUAI600T33 PO (12:22)
[2022-10-22] MEDS ORDERED: [UNRECOGNIZED DRUG - CODE] PO (12:22)
[2022-10-22] MEDS ORDERED: Prednisone10 MG PO (12:23)
--- NOTE | 2022-10-22 14:25 | NUR ---
DISCHARGE NOTE PT WAS ALERT AND ORIENTED X 4, HE ANSWERED QUESTIONS APPROPRIATELY AND WAS ABLE TO MAKE HIS NEEDS KNOWN. HR AND BP STABLE, HE WAS ON ROOM AIR AND SPO2 99%. HE HAD A SMALL BM THIS AM. PG IN BARRY WAS REMOVED BY THIS RN. COPY OF CONSENT TO GIVE INFORMATION WAS COPIED AND GIVEN TO THE PT PER PT AND PT DAUGHTER LACY REQUEST. ALL OF PT BELONGINGS WERE SENT W/ PT UPON DISCHARGE. THIS NURSE WENT OVER DISCHARGE INSTRUCTIONS W/ PT INCLUDING FOLLOW UP APPOINTMENTS, MEDICATION REGIMEN, DIET, AND MEDICATION DELIVERY. THIS RN ALSO GAVE REPORT TO SANDEE PASCAL FROM [facility] REGARDING PT CARE. THE PT LEFT PCU AT APPROX. 1225 VIA WHEELCHAIR AND WAS TRANSPORTED W/ [facility]. THIS RN ESCORTED PT OUT TO TRANSPORTATION. PT WAS STABLE AND ALL OF BELONGINGS WERE WITH THE PT.
== END 2022-10-22 13:35 | DRG 177 ==
LOC: ER 07:06 → MEDS 07:07 → ERHOLD 07:07 → MEDS 16:35 → PCU 10-13 10:21
PROVIDERS: Emergency Medicine; Family Medicine; Internal Medicine; Nurse Practitioner Acute Care; Student in an Organized Health Care Education/Training Program; ADMIT Internal Medicine
PROC: 3E0333Z Introduction of Anti-inflammatory into Peripheral Vein, Percutaneous Approach (ICD-10-PCS; 2022-10-05)
PROC: 8E0ZXY6 Isolation (ICD-10-PCS; 2022-10-06)
PROC: 5A09357 Assistance with Respiratory Ventilation, Less than 24 Consecutive Hours, Continuous Positive Airway Pressure (ICD-10-PCS; 2022-10-06)
PROC: XW033E5 Introduction of Remdesivir Anti-infective into Peripheral Vein, Percutaneous Approach, New Technology Group 5 (ICD-10-PCS; principal; 2022-10-10)
PROC: 5A0935A Assistance with Respiratory Ventilation, Less than 24 Consecutive Hours, High Flow/Velocity Cannula (ICD-10-PCS; 2022-10-14)
DX: U07.1 COVID-19 (principal); I50.43 Acute on chronic combined systolic (congestive) and diastolic (congestive) heart failure; J69.0 Pneumonitis due to inhalation of food and vomit; J96.01 Acute respiratory failure with hypoxia; J96.02 Acute respiratory failure with hypercapnia; J44.1 Chronic obstructive pulmonary disease with (acute) exacerbation; N17.9 Acute kidney failure, unspecified; E87.1 Hypo-osmolality and hyponatremia; I13.0 Hypertensive heart and chronic kidney disease with heart failure and stage 1 through stage 4 chronic kidney disease, or unspecified chronic kidney disease; J44.0 Chronic obstructive pulmonary disease with (acute) lower respiratory infection; Z66 Do not resuscitate; F41.9 Anxiety disorder, unspecified; R11.2 Nausea with vomiting, unspecified; N18.32 Chronic kidney disease, stage 3b; K59.00 Constipation, unspecified; I48.0 Paroxysmal atrial fibrillation; E87.6 Hypokalemia; I27.20 Pulmonary hypertension, unspecified; R55 Syncope and collapse; K21.9 Gastro-esophageal reflux disease without esophagitis; E78.5 Hyperlipidemia, unspecified; R13.12 Dysphagia, oropharyngeal phase; G89.29 Other chronic pain; H35.30 Unspecified macular degeneration; M31.6 Other giant cell arteritis; G47.33 Obstructive sleep apnea (adult) (pediatric); I25.10 Atherosclerotic heart disease of native coronary artery without angina pectoris; Z95.5 Presence of coronary angioplasty implant and graft; Z95.0 Presence of cardiac pacemaker; Z92.3 Personal history of irradiation; Z85.46 Personal history of malignant neoplasm of prostate; Z99.81 Dependence on supplemental oxygen; Z88.0 Allergy status to penicillin; Z88.8 Allergy status to other drugs, medicaments and biological substances; Z91.048 Other nonmedicinal substance allergy status; Z79.899 Other long term (current) drug therapy; Z79.02 Long term (current) use of antithrombotics/antiplatelets; Z79.51 Long term (current) use of inhaled steroids; Z90.49 Acquired absence of other specified parts of digestive tract; Z98.890 Other specified postprocedural states; Z87.891 Personal history of nicotine dependence
CPT/HCPCS: 0241U; 36415; 36600; 71045; 71046; 74018; 80048; 80053; 80069; 81001; 82803; 83735; 83880; 84484; 85014; 85018; 85025; 85027; 87426; 92526; 92610; 93005; 93010; 93306; 94640; 94644; 94660; 94664; 94760; 94762; 96365; 96366; 96375; 96376; 97110; 97116; 97162; 97166; 97530; 97530-CQ; 97535; 99285-25; A9270; C1751; C9113; C9803; G0378; J0248; J0456; J1100; J1650; J1940; J2060; J2405; J2550; J2920; J2930; J3010; J7030; J7050; J7512; U0004

== ENCOUNTER → 2023-01-07 | Outpatient (CLI) | payer MEDICARE, BC ==
[~2023-01-07] MED LIST changes: +1/2 NS 250ml250 ML; +Acetaminophen650 M1 PO; +BUSP5 PO; +CEPH250A PO; +DILT180 PO; +Keflex250 MG PO; +TUMS500 MG PO; +[UNRECOGNIZED DRUG - CODE] PO
[2023-01-07 15:24] LABS: Source, Urine Voided
[2023-01-07 16:57] LABS: Appearance, Urine Clear (Clear); Bilirubin, Urine Neg (Neg); Blood, Urine Neg (Neg); Color, Urine Yellow (P-Yellow); Glucose Qualitative, Urine Neg (Neg); Ketones, Urine Neg (Neg); Leukocyte Esterase, Urine Neg (Neg); Nitrite, Urine Neg (Neg); Protein, Urine 1+ (Neg); Specific Gravity, Urine 1.015 (1.003-1.022); Urobilinogen, Urine NORM (Normal); pH, Urine 6.5 (5.0-8.0)
[2023-01-07 17:13] LABS: BASOPHILS ABSOLUTE AUTO 0.05 K/mm3 (0.00-0.23); BASOPHILS PERCENT AUTO 1 % (0-2); EOSINOPHILS ABSOLUTE AUTO 0.26 K/mm3 (0.00-0.68); EOSINOPHILS PERCENT AUTO 5 % (0-6); Hematocrit 34.4 % (37.0-53.0); Hemoglobin 10.8 g/dL (13.5-17.5); IMMATURE GRAN ABSOLUTE AUTO 0.01 K/mm3 (0.00-0.10); IMMATURE GRAN PERCENT AUTO 0 % (0-1); LYMPHOCYTES PERCENT AUTO 19 % (21-46); MONOCYTES ABSOLUTE AUTO 0.57 K/mm3 (0.16-1.47); MONOCYTES PERCENT AUTO 11 % (4-13); Mean Corpuscular HGB 28.6 pg (26.0-34.0); Mean Corpuscular HGB Conc 31.4 g/dL (31.5-36.5); Mean Corpuscular Volume 91 fL (80-100); Mean Platelet Volume 9.4 fL (9.1-12.4); NEUTROPHILS ABSOLUTE AUTO 3.29 K/mm3 (1.96-9.15); NEUTROPHILS PERCENT AUTO 64 % (41-73); Platelet Count 322 K/mm3 (150-400); RDW Coefficient Variation 13.1 % (11.7-14.2); RDW Standard Deviation 43.8 fL (35.1-46.3); Red Blood Cell Count 3.77 M/mm3 (4.30-5.90); White Blood Cell Count 5.18 K/mm3 (4.00-11.30)
== END | disposition home or self-care (01) ==
LOC: LAB SHORT 15:19
PROVIDERS: Internal Medicine
DX: R06.00 Dyspnea, unspecified (principal); I12.9 Hypertensive chronic kidney disease with stage 1 through stage 4 chronic kidney disease, or unspecified chronic kidney disease; N18.31 Chronic kidney disease, stage 3a; D63.1 Anemia in chronic kidney disease
CPT/HCPCS: 83880; 85025

== ENCOUNTER 2023-11-04 20:30 | Emergency (ER) | payer MEDICARE, BC ==
[~2023-11-04] VITALS: Ht 182.9 cm; Wt 82.5 kg
[2023-11-04 22:07] LABS: BASOPHILS ABSOLUTE AUTO 0.02 K/mm3 (0.00-0.23); BASOPHILS PERCENT AUTO 0 % (0-2); EOSINOPHILS ABSOLUTE AUTO 0.02 K/mm3 (0.00-0.68); EOSINOPHILS PERCENT AUTO 0 % (0-6); Hematocrit 37.1 % (37.0-53.0); Hemoglobin 12.4 g/dL (13.5-17.5); IMMATURE GRAN ABSOLUTE AUTO 0.06 K/mm3 (0.00-0.10); IMMATURE GRAN PERCENT AUTO 1 % (0-1); LYMPHOCYTES ABSOLUTE AUTO 0.86 K/mm3 (0.84-5.20); LYMPHOCYTES PERCENT AUTO 7 % (21-46); MONOCYTES PERCENT AUTO 11 % (4-13); Mean Corpuscular HGB 28.4 pg (26.0-34.0); Mean Corpuscular HGB Conc 33.4 g/dL (31.5-36.5); Mean Corpuscular Volume 85 fL (80-100); Mean Platelet Volume 8.4 fL (9.1-12.4); NEUTROPHILS ABSOLUTE AUTO 10.67 K/mm3 (1.96-9.15); NEUTROPHILS PERCENT AUTO 82 % (41-73); Platelet Count 257 K/mm3 (150-400); RDW Coefficient Variation 14.1 % (11.7-14.2); RDW Standard Deviation 44.3 fL (35.1-46.3); Red Blood Cell Count 4.37 M/mm3 (4.30-5.90); White Blood Cell Count 13.03 K/mm3 (4.00-11.30)
[2023-11-04 22:26] LABS: Albumin, Blood 2.9 g/dL (3.4-5.0); Albumin/Globulin Ratio 0.8 (0.8-1.8); Bilirubin, Total 1.3 mg/dL (0.1-1.0); Bun/Creatinine Ratio 15.1 (12.0-20.0); Calcium, Blood 8.5 mg/dL (8.5-10.1); Creatinine, Blood 1.39 mg/dL (0.60-1.20); Globulin, Blood 3.5 g/dL (2.2-4.0); Total Protein, Blood 6.4 g/dL (6.4-8.2)
[2023-11-05 00:43] LABS: Source, Urine Suprapubic Cath
[2023-11-05 00:55] LABS: Bilirubin, Urine Neg (Neg); Blood, Urine 4+ (Neg); Glucose Qualitative, Urine Neg (Neg); Ketones, Urine 3+ (Neg); Leukocyte Esterase, Urine 3+ (Neg); Nitrite, Urine Neg (Neg); Protein, Urine 4+ (Neg); Specific Gravity, Urine 1.015 (1.003-1.022); Urobilinogen, Urine NORM (Normal)
[2023-11-05 01:07] LABS: Appearance, Urine Hazy (Clear); Bacteria Mod /hpf; Color, Urine Yellow (P-Yellow); Red Blood Cells, Urine 0-2 /hpf (0-2); Squamous Epithelial Cells Rare /hpf (Few); White Blood Cells, Urine TNTC /hpf (0-5)
[2023-11-05] MEDS ORDERED: CEPH500 PO (01:13)
[2023-11-05 01:45] VITALS: BP 139/49
== END 2023-11-05 01:50 | disposition home or self-care (01) ==
LOC: ER 20:30
PROVIDERS: Emergency Medicine
DX: N39.0 Urinary tract infection, site not specified (principal); Z46.6 Encounter for fitting and adjustment of urinary device; Z11.52 Encounter for screening for COVID-19; Z87.891 Personal history of nicotine dependence; I10 Essential (primary) hypertension; J44.9 Chronic obstructive pulmonary disease, unspecified; G47.33 Obstructive sleep apnea (adult) (pediatric); Z95.0 Presence of cardiac pacemaker; W18.39XA Other fall on same level, initial encounter; Y92.199 Unspecified place in other specified residential institution as the place of occurrence of the external cause
CPT/HCPCS: 80053; 81001; 85025; 87086; 94640; 94664; 96360; 99284-25; A9270; J7030

== ENCOUNTER 2024-08-14 06:40 | Emergency (ER) | payer OTHER, BC ==
[~2024-08-14] VITALS: Ht 182.9 cm; Wt 104.3 kg
[~2024-08-14 06:40] MED LIST changes: +CEPH500 PO
[2024-08-14 08:21] LABS: Source, Urine Foley catheter
[2024-08-14 08:33] LABS: BASOPHILS ABSOLUTE AUTO 0.06 K/mm3 (0.00-0.23); BASOPHILS PERCENT AUTO 1 % (0-2); EOSINOPHILS ABSOLUTE AUTO 0.64 K/mm3 (0.00-0.68); EOSINOPHILS PERCENT AUTO 8 % (0-6); Hematocrit 36.5 % (37.0-53.0); Hemoglobin 12.8 g/dL (13.5-17.5); IMMATURE GRAN ABSOLUTE AUTO 0.04 K/mm3 (0.00-0.10); IMMATURE GRAN PERCENT AUTO 1 % (0-1); LYMPHOCYTES PERCENT AUTO 11 % (21-46); MONOCYTES ABSOLUTE AUTO 1.05 K/mm3 (0.16-1.47); MONOCYTES PERCENT AUTO 13 % (4-13); Mean Corpuscular HGB 30.7 pg (26.0-34.0); Mean Corpuscular HGB Conc 35.1 g/dL (31.5-36.5); Mean Corpuscular Volume 88 fL (80-100); Mean Platelet Volume 8.1 fL (9.1-12.4); NEUTROPHILS ABSOLUTE AUTO 5.37 K/mm3 (1.96-9.15); NEUTROPHILS PERCENT AUTO 67 % (41-73); Platelet Count 167 K/mm3 (150-400); RDW Coefficient Variation 13.9 % (11.7-14.2); RDW Standard Deviation 44.7 fL (35.1-46.3); Red Blood Cell Count 4.17 M/mm3 (4.30-5.90); White Blood Cell Count 8.06 K/mm3 (4.00-11.30)
[2024-08-14 08:40] LABS: Appearance, Urine Clear (Clear); Bilirubin, Urine Neg (Neg); Blood, Urine 3+ (Neg); Color, Urine Yellow (P-Yellow); Glucose Qualitative, Urine Neg (Neg); Ketones, Urine 1+ (Neg); Leukocyte Esterase, Urine 3+ (Neg); Nitrite, Urine Neg (Neg); Protein, Urine 3+ (Neg); Specific Gravity, Urine 1.015 (1.003-1.022); Urobilinogen, Urine NORM (Normal)
[2024-08-14 08:52] LABS: Albumin, Blood 3.9 g/dL (3.4-5.0); Albumin/Globulin Ratio 1.3 (0.8-1.8); Bilirubin, Total 1.2 mg/dL (0.1-1.0); Bun/Creatinine Ratio 19.4 (12.0-20.0); Creatinine, Blood 2.32 mg/dL (0.60-1.20); Globulin, Blood 2.9 g/dL (2.2-4.0); Potassium, Blood 5.4 mmol/L (3.5-5.5); Total Protein, Blood 6.8 g/dL (6.4-8.2)
[2024-08-14 09:03] LABS: Bacteria Few /hpf; Squamous Epithelial Cells Few /hpf (Few)
[2024-08-14] MEDS ORDERED: Ondansetron HCl 2 MG / ML 2ML Vial IV ONE (09:40)
[2024-08-14] MEDS ORDERED: CefTRIAXone Sodium 1,000 MG in NS 100 ML IV ONE (09:40)
[2024-08-14] MEDS ORDERED: HYDROmorphone HCl/Pf 1MG SYR IV ONE ×2 (09:40→10:10)
[2024-08-14 11:30] VITALS: BP 151/95
[2024-08-14] MEDS ORDERED: HYDR1TAB94 PO (11:38)
[2024-08-17] MEDS ORDERED: CEFD300 PO (13:18)
[2024-08-17] MEDS ORDERED: LACT PO (20:00)
[2024-08-17] MEDS ORDERED: ALBU90OI INH (20:01)
[2024-08-17] MEDS ORDERED: BISA10S PR (20:01)
[2024-08-17] MEDS ORDERED: BUDESONIDE0.5 MG/2 M INH (20:01)
[2024-08-17] MEDS ORDERED: Calcium Carbon500 MG (20:02)
[2024-08-17] MEDS ORDERED: BUSPIRONE HCL7.5 M1 PO (20:02)
[2024-08-17] MEDS ORDERED: GABA100 PO (20:04)
[2024-08-17] MEDS ORDERED: Cymbalta20 MG PO (20:04)
[2024-08-17] MEDS ORDERED: FURO20 PO (20:04)
[2024-08-17] MEDS ORDERED: GUAI200 PO (20:05)
[2024-08-17] MEDS ORDERED: LOSA50 PO (20:05)
[2024-08-17] MEDS ORDERED: LACT10SY PO (20:05)
[2024-08-17] MEDS ORDERED: NITR100CA PO (20:12)
[2024-08-17] MEDS ORDERED: PANT40 PO (20:13)
[2024-08-17] MEDS ORDERED: POTCHL20ER PO (20:13)
[2024-08-17] MEDS ORDERED: Crestor40 MG PO (20:13)
[2024-08-17] MEDS ORDERED: TRAM50 PO (20:14)
[2024-08-17] MEDS ORDERED: TRAZ50 PO (20:14)
[2024-08-17] MEDS ORDERED: TIZA4 PO (20:14)
== END 2024-08-14 12:32 | disposition home or self-care (01) ==
LOC: ER 06:40
PROVIDERS: Emergency Medicine
DX: M48.54XA Collapsed vertebra, not elsewhere classified, thoracic region, initial encounter for fracture (principal); N39.0 Urinary tract infection, site not specified; I10 Essential (primary) hypertension; G47.33 Obstructive sleep apnea (adult) (pediatric); E78.5 Hyperlipidemia, unspecified; J44.89 Other specified chronic obstructive pulmonary disease; Z87.891 Personal history of nicotine dependence; Z79.899 Other long term (current) drug therapy; Z79.52 Long term (current) use of systemic steroids; Z79.02 Long term (current) use of antithrombotics/antiplatelets; Z88.0 Allergy status to penicillin; Z91.048 Other nonmedicinal substance allergy status; Z88.5 Allergy status to narcotic agent; Z88.8 Allergy status to other drugs, medicaments and biological substances
CPT/HCPCS: 74177; 80053; 81001; 83605; 83735; 85025; 87077; 87086; 87186; 96365-59; 96375; 96376; 99284-25; J0696; J1170; J2405; Q9967